=== PATIENT | female | born 1985 | race Caucasian/White ===

== ENCOUNTER 2016-08-12 05:59 | Day surgery (SDC) | payer OTHER ==
[~2016-08-12] VITALS: Ht 170.2 cm; Wt 87.1 kg
[~2016-08-12 05:59] MED LIST: NITR100C62 PO
[2016-08-12] MEDS ORDERED: CEFAZOLIN 1GM IVPB FOR OMNI 50 ML IV PRN (06:00)
[2016-08-12] MEDS ORDERED: NALT1TAB PO (06:38)
[2016-08-12] MEDS ORDERED: OMEP20TA63 PO (06:38)
[2016-08-12] MEDS ORDERED: BUPIVACAINE-EPI 0.25%-1:200000 MPF 30 ML VIAL. ONE (06:40)
[2016-08-12] MEDS ORDERED: SURGICEL HEMOSTAT 4X8 EACH. ONE (06:40)
[2016-08-12 06:48] LABS: NEG OBC UR NEG; POS OBC UR POS
[2016-08-12] MEDS ORDERED: ONDANSETRON PF 4 MG/2 ML VIAL. IV PRN (07:00)
[2016-08-12] MEDS ORDERED: KETOROLAC TROMETHAMINE 30 MG/ML SYRINGE. IV ONE (07:00)
[2016-08-12] MEDS ORDERED: PROCHLORPERAZINE 10 MG/2 ML VIAL. IV PRN (07:00)
[2016-08-12] MEDS ORDERED: IV RINGERS,LACTATED 1000ML 1,000 ML IV SCH (07:00)
[2016-08-12] MEDS ORDERED: MORPHINE SULFATE 2 MG/ML DISP.SYRIN. IV PRN (07:00)
[2016-08-12] MEDS ORDERED: FENTANYL PF 100 MCG/2 ML VIAL. IV PRN ×2 (07:00)
[2016-08-12] MEDS ORDERED: LIDOCAINE 1% 1 ML SYRINGE. ID PRN (07:00)
[2016-08-12] MEDS ORDERED: METHYLENE BLUE 1% 1 ML VIAL. ONE (08:02)
[2016-08-12] MEDS ORDERED: GLYCOPYRROLATE 1 MG/5 ML VIAL. ONE (08:05)
[2016-08-12] MEDS ORDERED: SEVOFLURANE 61 TO 120 MINUTES. IH ONE (08:05)
[2016-08-12] MEDS ORDERED: FENTANYL PF 100 MCG/2 ML VIAL. ONE ×3 (08:05→09:39)
[2016-08-12] MEDS ORDERED: MIDAZOLAM HCL 2 MG/2 ML VIAL. ONE (08:05)
[2016-08-12] MEDS ORDERED: PROPOFOL 20 ML IV ONE (08:06)
[2016-08-12] MEDS ORDERED: DEXAMETHASONE SOD PHOS 20 MG/5 ML VIAL. ONE (08:06)
[2016-08-12] MEDS ORDERED: NEOSTIGMINE METHYLSULFATE 5 MG/5 ML SYRINGE. ONE (08:06)
[2016-08-12] MEDS ORDERED: LIDOCAINE 2% 100 MG/5 ML DISP.SYRIN. ONE (08:06)
[2016-08-12] MEDS ORDERED: ROCURONIUM 50 MG/5 ML VIAL. ONE (08:06)
[2016-08-12] MEDS ORDERED: KETOROLAC 30 MG/ML SYRINGE FOR OR. INJ ONE (08:06)
[2016-08-12] MEDS ORDERED: ONDANSETRON PF 4 MG/2 ML VIAL. ONE (08:06)
[2016-08-12] MEDS ORDERED: PHENYLEPHRINE in 0.9% NACL PF 1 MG/10 ML DISP.SYRIN. IV ONE (08:47)
--- NOTE | 2016-08-12 10:10 | PDOC ---
BRIEF OPERATIVE NOTE Pre-Op Diagnosis AUB Post-Op Diagnosis Same + ROV Cyst and Endometriosis and Endometrial polyps Procedure Performed 1. Operative HSC 2. LPSC ROV Cystectomy 3. Chromotubation Surgeon Dr. Sparks Anesthesia Type: General Blood Loss 10 ml Specimens Obtained ROV cyst wall Findings nml size uterus, endometrial polyps, pelvic sidewall adhesions, non patent fallopian tubes, ROV cysts of 3 cm and 5 cm size, endometriosis on Right fallopian tube Complications none Additional Remarks pt. BALDO Snell Jr, MD Aug 12, 2016 10:10
--- NOTE | 2016-08-12 10:12 | DISCH ---
DISCHARGE INSTRUCTIONS Condition on Discharge Condition on Discharge: Stable Activity After Discharge Activity Instructions for Disc: Resume previous activity Lifting Instructions after Dis: No heavy lifting Driving Instructions after Dis: Do not drive today Diet after Discharge Diet after Discharge: Regular Contacting the DRBill after DC Call your doctor for: Concerns you may have Follow-Up Follow up with: Dr. Sparks in 1 week. BALDO SPARKS Jr, MD Aug 12, 2016 10:12
[2016-08-12] MEDS: HYDROMORPHONE 2 MG/ML VIAL. IV PRN ×2 (10:19→10:31)
[2016-08-12] MEDS ORDERED: ACETAMINOPHEN INTRAVENOUS 100 ML IV ONE ×2 (10:23→10:45)
[2016-08-12] MEDS ORDERED: OXYC-323 PO (10:50)
[2016-08-12] MEDS ORDERED: ONDA4TAB10 PO (10:50)
[2016-08-12 11:10] VITALS: BP 110/66
--- NOTE | 2016-08-12 13:54 | OP ---
DATE OF SURGERY: PREOPERATIVE DIAGNOSIS: Abnormal uterine bleeding. POSTOPERATIVE DIAGNOSES: 1. Abnormal uterine bleeding. 2. Right ovarian cyst. 3. Endometriosis. 4. Endometrial polyps. PROCEDURE: 1. Operative hysteroscopy with polypectomy. 2. Laparoscopic right ovarian cystectomy. 3. Chromotubation. SURGEON: Baldo Sparks MD ANESTHESIA: GETA. ESTIMATED BLOOD LOSS: 10 mL. COMPLICATIONS: None. FINDINGS: Normal size uterus, endometrial polyps throughout the endometrial cavity. Pelvic several adhesions, nonpatent fallopian tubes bilaterally, right ovarian cyst was 3 and 5 cm in size. SUMMARY: A 31-year-old female with history of abnormal uterine bleeding, counseled on risk for operative hysteroscopy, chromotubation, and diagnostic laparoscopy. Risks, benefits and expectations and voiced a clear understanding to proceed. DESCRIPTION OF PROCEDURE: The patient was taken to the surgery suite and placed in dorsal lithotomy position. She was prepped with Betadine solution for vaginal prep and ChloraPrep for abdominal prep. After adequate anesthesia, a weighted speculum was placed vaginally. Anterior lip of the cervix was grasped with a single tooth tenaculum. Cervix was dilated with Gisselle dilators up to size 6. The Truclear hysteroscope was then placed. There were multiple endometrial polyps, which were removed with the Truclear device until the cavity was homogeneous and clear of all debris. The hysteroscope was then removed. The uterine acorn manipulator was then placed along with the methylene blue dye tubing. Attention was placed on the abdomen, in which a small transverse skin incision was made just below the umbilicus with a scalpel. The Veress needle was then placed through the infraumbilical incision site. The abdomen was allowed to insufflate up to 1-1/2 liters of CO2 gas. The Veress needle was then removed. The 5-mm trocar was placed. The scope was positioned. The uterus appeared normal sized. There were few pelvic sidewall adhesions. Two incisions were made in the left lower quadrant with a scalpel, in which 5 mm trocars were placed respectively. The chromotubation was then proceeded with, in which neither fallopian tube had spillage of methylene blue dye. With the aid of graspers and Catrina retractor, the remainder of the abdominal cavity was visualized. There was endometriosis on the right fallopian tube near the isthmus region. There was a right ovarian cyst one of 3 cm size and other 5 cm in size. Each was incised with EndoShears and suction irrigation was utilized to drain the cyst. The cyst cannon were removed using EndoShears. The remaining cyst wall was fulgurated with the EndoShears cautery. The area was hemostatic. Suction irrigation was utilized to verify good hemostasis and cleared rest of the pelvic cul-de-sac. A small amount of normal saline was left in the posterior cul-de-sac. The trocars were then removed under direct visualization. The abdomen was allowed to deflate as much as possible along with mechanical manipulation. Three skin incisions were reapproximated using 4-0 Vicryl suture in subcuticular manner. Marcaine 0.25% with epinephrine was injected at each incision site. The single tooth tenaculum and uterine acorn manipulator were then removed. The patient tolerated the procedure well and was taken to recovery room in stable condition. Sponge and needle counts correct x 3. BALDO SPARKS MD DR: ELIN/acnelmo JOB#: [id number] / [id number]
--- NOTE | 2016-08-13 13:42 | PATHOLOGY ---
PATHOLOGY REPORT * * * * * * * * FINAL DIAGNOSIS: A. Endometrial curettings: - Secretory endometrium. B. Ovarian tissue, right ovarian cyst #1: - Hemorrhagic partially luteinized follicle cyst. C. Ovarian tissue, right ovarian cyst #2: - Hemorrhagic partially luteinized follicle cyst. COMMENT: There is no evidence of malignancy. (JPM:csd; d/t: 08/13/2016) REPORT ELECTRONICALLY SIGNED BY: Ron Andujar M.D. DATE/TIME: 08/13/2016 13:41 * * * * * * * * GROSS PATHOLOGY: A. The specimen is received in formalin, labeled "Partha Mcguirea and endometrial polyp." Received is a 2.3 x 0.7 x 0.2 cm aggregate of pink-diamond, rubbery, and irregular soft tissue fragments. The specimen is entirely submitted in cassette A1. B. The specimen is received in formalin, labeled "Mcguire, Pablo and right ovarian cyst (1st)." Received is a 3.3 x 1.8 x 0.9 cm aggregate of blood tinged, pink-diamond to yellow, irregular, and cystic soft tissue. The specimen is sectioned and entirely submitted in cassettes B1-B2. C. The specimen is received in formalin, labeled "Mcguire, Pablo and right ovarian cyst (2nd)." Received is a 2.3 x 0.9 x 0.5 cm aggregate of blood tinged, pink-diamond to yellow, irregular, and cystic soft tissue. The specimen is sectioned and entirely submitted in cassette C1. (TTL; 08/12/2016) INITIAL CPT CODE(S): A; 80750 B; 13914 C; 83325 Professional services performed by [facility] at [address] [address] Technical services performed by [facility] at [address] [place] [address], [address] [address]. SPECIMEN(S) RECEIVED: A.Endometrial polyp B.Right ovarian cyst #1 C.Right ovarian cyst #2 CLINICAL HISTORY: AUB PATIENT: PABLO MCGUIRE /AGE: 7 1985 (Age: 31) PATIENT #: [id number] ALT CASE #: SPECIMEN COLLECTION DATE: 08/12/2016 SPECIMEN RECEIVED DATE: 08/12/2016 [facility] - [id number] [address] - PHONE: [phone] * * * END OF REPORT * * *
== END 2016-08-12 11:21 | disposition home or self-care (01) ==
LOC: SURG 05:59
PROVIDERS: ATTEND Obstetrics & Gynecology
DX: N84.0 Polyp of corpus uteri (principal); N83.291 Other ovarian cyst, right side; N80.9 Endometriosis, unspecified; N73.6 Female pelvic peritoneal adhesions (postinfective); K21.9 Gastro-esophageal reflux disease without esophagitis; F10.99 Alcohol use, unspecified with unspecified alcohol-induced disorder; F17.200 Nicotine dependence, unspecified, uncomplicated
CPT/HCPCS: 58350; 58558; 58662; 81025; 88304; 88305; A4215; J0131; J0690; J0780; J1100; J1170; J1885; J2250; J2370; J2405; J2704; J2710; J3010; J3490; J7030; J7120; Q9968

== ENCOUNTER → 2016-09-29 | Outpatient (CLI) | payer OTHER ==
[~2016-09-29] MED LIST changes: +NALT1TAB PO; +OMEP20TA63 PO; +ONDA4TAB10 PO; +OXYC-323 PO
== END | disposition home or self-care (01) ==
LOC: LAB 12:03
PROVIDERS: ATTEND Obstetrics & Gynecology
DX: N91.2 Amenorrhea, unspecified (principal)
CPT/HCPCS: 36415; 84702

== ENCOUNTER → 2016-09-29 | Outpatient (CLI) | payer OTHER ==
[~2016-09-29] MED LIST changes: +IOHEXOL 180 MG/ML 10 ML VIAL. INT UTERIN ONE
--- NOTE | 2016-09-29 14:07 | KCIC ---
PROCEDURE Hysterosalpingogram HISTORY Infertility, endometriosis COMPARISON None TECHNIQUE Patient was informed of the risks to include pain, infection, bleeding, allergic reaction. All questions were answered. Patient signed a written consent form for a hysterosalpingogram. Patient was placed in a supine position on the fluoroscopy table. External skin site was cleansed with Betadine solution. Speculum was inserted. Cervix was cleansed with Betadine solution. Six Czech HSG catheter was inserted and secured with balloon inflation. Fluoroscopic imaging was performed of the uterus during injection of contrast. Approximately 20 cc of Omnipaque 180 were injected. Balloon was deflated and catheter removed. Speculum was removed. There were no immediate complications. FINDINGS Uterus is considered within normal limits. Initially there was no significant contrast opacification of the fallopian tubes. However upon further injection of contrast, there was contrast opacification of the right fallopian tube with some free spill of contrast. There is some undulating irregularity of the cannon of the right fallopian tube. Left fallopian tube never opacified with contrast. Fluoroscopy time 1 minutes 7 seconds, 15 images IMPRESSION 1. Left fallopian tube is occluded. Right fallopian tube is patent, somewhat delayed opacification with contrast and some undulating irregularity of the cannon. Electronically signed by: Ok Lopez MD (Sep 29, 2016 14:05:10)
== END | disposition home or self-care (01) ==
LOC: KCIC 12:43
PROVIDERS: ATTEND Obstetrics & Gynecology
DX: N80.9 Endometriosis, unspecified (principal)
CPT/HCPCS: 74400

== ENCOUNTER → 2016-12-15 | Outpatient (CLI) | payer OTHER ==
[~2016-12-15] MED LIST changes: -IOHEXOL 180 MG/ML 10 ML VIAL. INT UTERIN ONE
--- NOTE | 2016-12-15 12:23 | RAD ---
PROCEDURE MRI of the lumbar spine without contrast 12/15/2016 HISTORY Low back pain which radiates down the right leg. TECHNIQUE Unenhanced T1 weighted, T2 weighted and inversion recovery sagittal and T1 weighted and T2 weighted axial images of the lumbar spine were obtained. FINDINGS Minimal S-shaped curvature of the thoracolumbar spine is seen. Degenerative signal changes are seen involving the L4-5 and L5-S1 discs. Loss of height of the L5-S1 disc is noted. Degenerative signal changes within the marrow surrounding these discs. The conus medullaris is normal in morphology, position, and signal characteristics. The L1-2, L2-3 and L3-4 disc spaces are within normal limits. At tge L4-5 disc space there is a mild generalized disc bulge. Superimposed on this disc bulge is a focal central disc protrusion. This measures 2 millimeters in AP diameter. Degenerative changes are seen involving the facet joints bilaterally. There is mild ligamentum flavum hypertrophy bilaterally. These findings when combined do not result in significant central spinal canal or neural foraminal stenosis. At the L5-S1 disc space there is a mild generalized disc bulge. Superimposed on this disc bulge is a central/left paracentral focal disc protrusion. This measures 3 millimeters in AP diameter. Degenerative changes are seen involving the facet joints bilaterally. These findings when combined do not result in significant central spinal canal or neural foraminal stenosis. IMPRESSION The changes of degenerative disc disease are seen involving the lower lumbar spine. These findings do not result in significant central spinal canal or neural foraminal stenosis at any level. Electronically signed by: Nathan Craig MD (December 15, 2016 12:22:19)
== END | disposition home or self-care (01) ==
LOC: MRI 08:55
PROVIDERS: ATTEND Family Medicine
DX: S39.012D Strain of muscle, fascia and tendon of lower back, subsequent encounter (principal); S30.0XXD Contusion of lower back and pelvis, subsequent encounter; X58.XXXD Exposure to other specified factors, subsequent encounter; M51.36 Other intervertebral disc degeneration, lumbar region
CPT/HCPCS: 72148

== ENCOUNTER 2017-06-16 10:45 | Emergency (ER) | payer OTHER ==
[~2017-06-16] VITALS: Ht 170.2 cm; Wt 95.3 kg
[~2017-06-16 10:45] MED LIST changes: +DULO30CA2 PO; +MEDR150D3 IM; +NAPR500T4 PO; +NORE5TAB3 PO; +OXYC-328 PO; +PANT40TA5 PO; +TIZA4TAB PO
--- NOTE | 2017-06-16 11:39 | PHYS DOC ---
Past Medical History Past Medical History: Endometriosis, Other Additional Past Medical Histor: ACID REFLUX,Ruptured ovarian cyst, BULGING DISCS, MISCARRIAGE X2 Past Surgical History: Other Additional Past Surgical Histo: Dental surgery, HISTOSCOPY Smoking: Cigarettes, Less than 1pk/day Alcohol Use: Occasionally Drug Use: None Adult General Chief Complaint Chief Complaint: LOWER EXT PAIN [facility] HPI Patient is a pleasant 32-year-old female with a history of back injury she sustained while at work. There is a fall from standing where she sustained injury to her lumbar spine and has L4 L5 S1 bulging disc. She developed increasing pain with tingling down her legs bilaterally for about 6 months. She is seen by Dr. Maddie Perkins pain management physician who completed an MRI 6 months ago which showed these bulging disc. They're not amenable to surgery according to the patient. They attempted an epidural 6 days ago. Patient has had increasing pain and weakness in her legs bilaterally since. She's had difficulty initiating urination she denies bowel or bladder incontinence denies any lower extremity edema or numbness. She says that she can hardly walk secondary to the pain and the weakness has progressed in her lower legs. She was told by her physician to come in for evaluation for possible epidural hematoma or competition of the epidural injection. Patient at this time and denies UTI symptoms, denies being , denies fever, chills, night sweats or weight loss. She denies specific trauma. Patient's pain is a significant 8 of 10 worse with range of motion and walking. Review of Systems Review of Systems Constitutional: Denies fever or chills [] Eyes: Denies change in visual acuity, redness, or eye pain [] HENT: Denies nasal congestion or sore throat [] Respiratory: Denies cough or shortness of breath [] Cardiovascular: No additional information not addressed in HPI [] GI: Denies abdominal pain, nausea, vomiting, bloody stools or diarrhea [] : Denies dysuria or hematuria [] Musculoskeletal: Complains of significant back pain that is progressively worse. With increasing weakness of the lower legs. Integument: Denies rash or skin lesions [] Neurologic: Denies headache, she describes weakness in the lower legs bilaterally at the knees and ankles with walking.] Endocrine: Denies polyuria or polydipsia [] All other systems were reviewed and found to be within normal limits, except as documented in this note. Current Medications Current Medications Current Medications Medications (Trade) Dose Ordered Sig/Sugey Start Time Stop Time Status Last Admin Dose Admin Gadobutrol (Gadavist) 10 mmol 1X ONCE 06/16/17 13:00 06/16/17 13:01 DC 06/16/17 13:24 10 MMOL Hydromorphone HCl (Dilaudid) 1 mg 1X ONCE 06/16/17 14:15 06/16/17 14:16 DC 06/16/17 14:22 1 MG Ketorolac Tromethamine (Toradol) 30 mg 1X ONCE 06/16/17 11:45 06/16/17 11:46 DC 06/16/17 11:52 30 MG Ondansetron HCl (Zofran) 4 mg 1X ONCE 06/16/17 11:45 06/16/17 11:46 DC 06/16/17 11:51 4 MG Allergies Allergies Allergies Coded Allergies Type Severity Reaction Last Updated Verified No Known Drug Allergies 08/12/16 No Physical Exam Physical Exam Patient's vital signs noted to be tachycardic and hypertensive which may be a associated with pain levels as well as possible necrotic withdrawal. Constitutional: Well developed, well nourished, patient is sitting comfortable in no acute distress nontoxic appearance HENT: Normocephalic, atraumatic, bilateral external ears normal, oropharynx moist, no oral exudates, nose normal. [] Eyes: PERRLA, EOMI, conjunctiva normal, no discharge. [] Neck: Normal range of motion, no tenderness, supple, no stridor. [] Cardiovascular:Heart rate regular rhythm, no murmur [] Lungs & Thorax: Bilateral breath sounds clear to auscultation [] Abdomen: Bowel sounds normal, soft, no tenderness, no masses, no pulsatile masses. [] Skin: Warm, dry, no erythema, no rash. [] Back: Patient does demonstrate tenderness to palpation over the epidural site over L4-L5 with no evidence of erythema soft tissue swelling or warmth to touch. Extremities: No tenderness, no cyanosis, no clubbing, ROM intact, no edema. [] Neurologic: Alert and oriented X 3, he has weakness to extension at the knee has brisk + DTRs at the knee and ankle bilaterally with normal sensation to light touch and proprioception. Patient has normal strength to patient is able to extend at the hip although there is some slight weakness noted. Psychologic: Affect normal, judgement normal, mood normal. [] Current Patient Data Vital Signs Vital Signs Date Time Temp Pulse Resp B/P (MAP) Pulse Ox O2 Delivery O2 Flow Rate FiO2 06/16/17 14:22 18 99 Room Air 06/16/17 13:52 91 118/79 (92) 06/16/17 11:05 97.8 97.8 Lab Values Laboratory Tests Test 06/16/17 11:45 06/16/17 12:08 06/16/17 12:19 White Blood Count 10.6 x10^3/uL (4.0-11.0) Red Blood Count 4.54 x10^6/uL (3.50-5.40) Hemoglobin 14.9 g/dL (12.0-15.5) Hematocrit 44.0 % (36.0-47.0) Mean Corpuscular Volume 97 fL (79-100) Mean Corpuscular Hemoglobin 33 pg (25-35) Mean Corpuscular Hemoglobin Concent 34 g/dL (31-37) Red Cell Distribution Width 13.6 % (11.5-14.5) Platelet Count 345 x10^3/uL (140-400) Neutrophils (%) (Auto) 58 % (31-73) Lymphocytes (%) (Auto) 32 % (24-48) Monocytes (%) (Auto) 8 % (0-9) Eosinophils (%) (Auto) 2 % (0-3) Basophils (%) (Auto) 1 % (0-3) Neutrophils # (Auto) 6.1 x10^3uL (1.8-7.7) Lymphocytes # (Auto) 3.3 x10^3/uL (1.0-4.8) Monocytes # (Auto) 0.8 x10^3/uL (0.0-1.1) Eosinophils # (Auto) 0.2 x10^3/uL (0.0-0.7) Basophils # (Auto) 0.1 x10^3/uL (0.0-0.2) Sodium Level 138 mmol/L (136-145) Potassium Level 3.9 mmol/L (3.5-5.1) Chloride Level 102 mmol/L (98-107) Carbon Dioxide Level 24 mmol/L (21-32) Anion Gap 12 (6-14) Blood Urea Nitrogen 14 mg/dL (7-20) Creatinine 0.7 mg/dL (0.6-1.0) Estimated GFR (Cockcroft-Gault) 97.0 BUN/Creatinine Ratio 20 (6-20) Glucose Level 101 mg/dL (70-99) H Calcium Level 9.4 mg/dL (8.5-10.1) Total Bilirubin 0.2 mg/dL (0.2-1.0) Aspartate Amino Transferase (AST) 14 U/L (15-37) L Alanine Aminotransferase (ALT) 22 U/L (14-59) Alkaline Phosphatase 86 U/L (46-116) Total Protein 7.5 g/dL (6.4-8.2) Albumin 3.5 g/dL (3.4-5.0) Albumin/Globulin Ratio 0.9 (1.0-1.7) L Urine Collection Type Unknown Urine Color Yellow Urine Clarity Clear Urine pH 6.5 Urine Specific [place] 1.020 Urine Protein Negative mg/dL (NEG-TRACE) Urine Glucose (UA) Negative mg/dL (NEG) Urine Ketones (Stick) Negative mg/dL (NEG) Urine Blood Negative (NEG) Urine Nitrite Negative (NEG) Urine Bilirubin Negative (NEG) Urine Urobilinogen Dipstick 0.2 mg/dL (0.2 mg/dL) Urine Leukocyte Esterase Negative (NEG) Urine RBC 1-2 /HPF (0-2) Urine WBC 1-4 /HPF (0-4) Urine Squamous Epithelial Cells Few /LPF Urine Bacteria 0 /HPF (0-FEW) Urine Mucus Marked /LPF POC Urine HCG, Qualitative Hcg negative (Negative) Laboratory Tests 06/16/17 11:45 Laboratory Tests 06/16/17 11:45 EKG EKG [] Radiology/Procedures Radiology/Procedures [] [facility] [address] [place], [place] [id number] IMAGING REPORT Signed PATIENT: PABLO MCGUIRE ACCOUNT: [id number] : 1985 LOCATION: ER AGE: 32 SEX: F EXAM STATUS: REG ER ORD. PHYSICIAN: DONG HOFF MD REASON: recent epidural increasing weakness PROCEDURE: LUMBAR SPINE WO/W CONTRAST MRI Lumbar Spine without and with contrast History: Bilateral leg weakness, recent epidural Technique: Multiplanar, multi sequential pre and postcontrast MR imaging was performed of the lumbar spine. Contrast: 10 cc Gadavist Comparison: December 15, 2016 Findings: Lumbar vertebral body stature and AP alignment are maintained. There is again mild to moderate degenerative disc disease L5-S1 and minimally at L4-5. There are again posterior annular tears L4-5 and L5-S1. There is no significant marrow edema. Conus terminates at L1. There is no nodular enhancement of the conus or cauda equina, no enhancement in the intervertebral disc spaces. There is no significant marrow edema. L1-L2: Spinal canal and neural foramina are adequate. L2-L3: Neural foramina and spinal canal are adequate. L3-L4: Neural foramina and spinal canal are adequate. There is mild facet hypertrophic change. There is prominence of posterior epidural fat. L4-L5: There is again negligible disc osteophyte complex and bulge. There is mild facet degenerative change. Spinal canal and neural foramina are adequate. There is mild prominence of posterior epidural fat. L5-S1: There is again very shallow posterior disc osteophyte complex and bulge. Spinal canal is adequate. Neural foramina are adequate. There is mild facet degenerative change. Impression: 1. Findings are similar compared with the December 15, 2016 exam, no new significant lumbar spinal stenosis or neural foramina compromise. There is again mild to moderate degenerative disc disease at L5-S1 and minimally at L4-5. There is mild spondylosis at these levels. Electronically signed by: Maddie Salas MD (06/16/2017 1:43 PM) [facility] DICTATED and SIGNED BY: MADDIE SALAS MD DATE: 06/16/17 [id number] CC: DONG HOFF MD; AXEL CHEN MD ~ Course & Med Decision Making Course & Med Decision Making Pertinent Labs and Imaging studies reviewed. (See chart for details) []CRAFTI Cauda Equina Renal Stone AAA ruptured Fracture Tumor (TB, metastatic disease) Infection UTI, pyelonephritis, epidural abscess. I'm is concerned with prior epidural placement is initially epidural hematoma or epidural abscess, again the situation. Patient has some symptoms of cauda equina with progressive weakness but no evidence of saddle anesthesia MRI of the lumbar spine with a noncontrast be initiated for the emergency department Patient's lumbar MRI with and without contrast demonstrated no significant epidural hematoma or abscess. There is very minimal change from the prior MRI done several months earlier. Dragon Disclaimer Dragon Disclaimer This electronic medical record was generated, in whole or in part, using a voice recognition dictation system. Departure Departure Impression: Primary Impression: Chronic lower back pain Disposition: HOME, SELF-CARE Condition: IMPROVED Referrals: AXEL CHEN MD (PCP) Patient Instructions: Back Pain, Adult, Chronic Back Pain, Chronic Pain Management Additional Instructions: discharge: I've spoken with the patient and/or caregivers. I've explained the patient's condition, diagnosis and treatment plan based on information available to me at this time. I've answered the patient's and/or caregivers questions and addressed any concerns. The patient and/or caregivers have a good understanding the patient's diagnosis, condition and treatment plan as can be expected at this point. Vital signs have been stabilized. The patient's condition is stable for discharge from the emergency department. The patient will pursue further outpatient evaluation with her primary care provider or other designated consulting physician as outlined in the discharge instructions. Patient and/or caregivers are agreeable to this plan of care and follow-up instructions have been explained in detail. The patient and/or caregivers have received these instructions in written format and expressed understanding of these discharge instructions. The patient and her caregivers are aware that if any significant change in condition or worsening of symptoms should prompt him to immediately return to this of the closest emergency department. If an emergent department is not readily available I would encourage him to call 911. Scripts Diazepam (VALIUM) 5 Mg Tablet 5 MG PO TID for MUSCLE SPASMS for 5 Days, #15 TAB Prov: DONG HOFF MD 06/16/17 DONG HOFF MD Jun 16, 2017 11:39
[2017-06-16] MEDS ORDERED: ONDANSETRON PF 4 MG/2 ML VIAL. IV ONE (11:45)
[2017-06-16] MEDS ORDERED: KETOROLAC 30 MG/ML INJ. IV ONE (11:45)
[2017-06-16] MEDS: HYDROmorphone 2 MG/ML VIAL IV ONE (11:51)
[2017-06-16 12:03] LABS: BASO # 0.1 x10^3/uL (0.0-0.2); BASO % 1 % (0-3); EOS % 2 % (0-3); HEMOGLOBIN 14.9 g/dL (12.0-15.5); LYMPH # 3.3 x10^3/uL (1.0-4.8); LYMPH % 32 % (24-48); MEAN CORPUSCULAR HEMOGLOBIN 33 pg (25-35); MEAN CORPUSCULAR HGB CONC 34 g/dL (31-37); MEAN CORPUSCULAR VOLUME 97 fL (79-100); MONO % 8 % (0-9); NEUT % 58 % (31-73); PLATELET COUNT 345 x10^3/uL (140-400); RED BLOOD COUNT 4.54 x10^6/uL (3.50-5.40); RED CELL DISTRIBUTION WIDTH 13.6 % (11.5-14.5); WHITE BLOOD COUNT 10.6 x10^3/uL (4.0-11.0)
[2017-06-16 12:12] LABS: CALCIUM 9.4 mg/dL (8.5-10.1); CREATININE 0.7 mg/dL (0.6-1.0); POTASSIUM 3.9 mmol/L (3.5-5.1)
[2017-06-16 12:18] LABS: ALBUMIN 3.5 g/dL (3.4-5.0); ALBUMIN/GLOBULIN RATIO 0.9 (1.0-1.7); TOTAL BILIRUBIN 0.2 mg/dL (0.2-1.0); TOTAL PROTEIN 7.5 g/dL (6.4-8.2)
[2017-06-16 12:25] LABS: BILIRUBIN,URINE NEGATIVE (NEG); GLUCOSE,URINE NEGATIVE (NEG); NITRITE,URINE NEGATIVE (NEG); PH,URINE 6.5; PROTEIN,URINE NEGATIVE (NEG-TRACE); UROBILINOGEN,URINE 0.2 mg/dL (0.2 mg/dL)
[2017-06-16 12:39] LABS: BACTERIA,URINE 0 /HPF (0-FEW); SQUAMOUS EPITHELIAL CELL,UR FEW /LPF
[2017-06-16] MEDS ORDERED: GADOBUTROL 10 MMOL/10 ML VIAL IV ONE (13:00)
--- NOTE | 2017-06-16 13:47 | RAD ---
MRI Lumbar Spine without and with contrast History: Bilateral leg weakness, recent epidural Technique: Multiplanar, multi sequential pre and postcontrast MR imaging was performed of the lumbar spine. Contrast: 10 cc Gadavist Comparison: December 15, 2016 Findings: Lumbar vertebral body stature and AP alignment are maintained. There is again mild to moderate degenerative disc disease L5-S1 and minimally at L4-5. There are again posterior annular tears L4-5 and L5-S1. There is no significant marrow edema. Conus terminates at L1. There is no nodular enhancement of the conus or cauda equina, no enhancement in the intervertebral disc spaces. There is no significant marrow edema. L1-L2: Spinal canal and neural foramina are adequate. L2-L3: Neural foramina and spinal canal are adequate. L3-L4: Neural foramina and spinal canal are adequate. There is mild facet hypertrophic change. There is prominence of posterior epidural fat. L4-L5: There is again negligible disc osteophyte complex and bulge. There is mild facet degenerative change. Spinal canal and neural foramina are adequate. There is mild prominence of posterior epidural fat. L5-S1: There is again very shallow posterior disc osteophyte complex and bulge. Spinal canal is adequate. Neural foramina are adequate. There is mild facet degenerative change. Impression: 1. Findings are similar compared with the December 15, 2016 exam, no new significant lumbar spinal stenosis or neural foramina compromise. There is again mild to moderate degenerative disc disease at L5-S1 and minimally at L4-5. There is mild spondylosis at these levels. Electronically signed by: Pineda Lopez MD (06/16/2017 1:43 PM) [id number]
[2017-06-16 13:52] VITALS: BP 118/79
[2017-06-16] MEDS ORDERED: HYDROmorphone 2 MG/ML VIAL IV ONE (14:15)
[2017-06-16] MEDS ORDERED: DIAZ5TAB PO (14:34)
== END 2017-06-16 14:41 | disposition home or self-care (01) ==
LOC: ER 10:45
DX: G89.29 Other chronic pain (principal); M54.5 Low back pain; R39.198 Other difficulties with micturition; F17.210 Nicotine dependence, cigarettes, uncomplicated; K21.9 Gastro-esophageal reflux disease without esophagitis
CPT/HCPCS: 36415; 72158; 80053; 81001; 81025; 85025; 96374; 96375; 96376; 99285; A9585; J1170; J1885; J2405

== ENCOUNTER → 2017-06-27 | Outpatient (CLI) | payer OTHER ==
[2017-06-16 13:52] VITALS: BP 118/79
[~2017-06-27] MED LIST changes: +DIAZ5TAB PO; +IOHEXOL 180 MG/ML 10 ML VIAL. ONE; +methylPREDNISolone ACETATE 40 MG/ML VIAL. ONE; +methylPREDNISolone ACETATE 80 MG/ML VIAL. ONE
--- NOTE | 2017-06-27 18:48 | PAIN ---
DATE OF SERVICE: 06/27/2017 DIAGNOSES: Lumbar radiculopathy with lumbar degenerative disk disease. HISTORY OF PRESENT ILLNESS: The patient is a 32-year-old female who returns for followup status post lumbar epidural steroid injection x 1. The patient reports initially about 50% improvement and pain began to come back. About a week ago, pain returned. The patient had actually called the office with complaints that she was unable to move her right leg. We had her go to the Emergency Department. She was evaluated and sent home after MRI scan showing no significant or acute findings similar compared with 11/2016 exam with no new significant lumbar spinal stenosis or neural foraminal compromise. Also again showed mild to moderate degenerative disk disease, L5-S1 minimally at L4-L5 with a shallow posterior disk osteophyte complex at L5-S1 and L4-L5. The patient reports after that, her legs felt better. She had been able to move them more. She is still having some pain in the low back, mostly in the right side, but also in the left as well, worse with walking, standing, changing positions, better with sitting or lying down, is awakening her from sleep occasionally though over the past few days, but not every night, she needs to be repositioned or take pain medicine or get out of bed and stand and then get back to sleep after that. The patient reports pain is a 9 on a scale of 10 at its worst, 7 on average and a 5 at its least and is a 7 today. The patient reports it is stabbing, aching, shooting, constant severe in the low back, radiating to the right lower extremity posteriorly in the gluteus as well as the lateral anterior thigh. The patient reports no new motor or sensory deficits, no new bowel or bladder incontinence or other complaints. PHYSICAL EXAMINATION: VITAL SIGNS: Today, the patient's blood pressure is 147/98, pulse 90, respirations 18, temperature 97.4 degrees Fahrenheit. Height is 5 feet 7 inches, weight is 214 pounds. GENERAL: The patient is awake, alert, oriented, appropriate, very pleasant demeanor. HEENT: Head shows normocephalic, atraumatic. Extraocular movements are intact, symmetrical. Oral cavity: Mucous membranes are moist and pink. Dentition is intact. NECK: Shows anterior throat supple without palpable lymphadenopathy noted. Swallow reflex is symmetrical. Neck shows full rotational motion of the cervical spine without difficulty. CHEST: Shows normal on inspection. Breath sounds clear to auscultation bilaterally. HEART: Shows S1, S2 clear. No murmurs auscultated. ABDOMEN: Soft, nontender, nondistended, obese. No palpable organomegaly. No rebound or guarding demonstrated. BACK: Shows spine grossly in midline. Normal appearing thoracic kyphosis and lumbar lordotic curvature. Lumbar paraspinous muscle shows symmetrical on inspection with normal lordotic curvature. Lumbar paraspinous muscles show diffuse tenderness throughout the middle and lower distribution bilaterally, slightly more on the right than the left, but present bilaterally without evidence of atrophy, hypertrophy without radiation or trigger points identified. No tenderness over the sacrum or sacroiliac regions. EXTREMITIES: Lower extremities show deep tendon reflexes at 2+ in the patellar, 1+ tendo calcaneus tendons. Motor exam is approximately 4 on a scale 5 with right dorsiflexion, extension, 5/5 on the left. Peripheral pulses are 1+. No peripheral edema is noted. Options were discussed with the patient. The patient's old chart was reviewed as her current medication regimen and updated. Current review of systems is updated today as well. We will proceed with a second in the series of lumbar epidural steroid injection with fluoroscopic guidance. Risks were again discussed including, but not limited to bleeding, infection, possibility of epidural hematoma, subsequent neurologic compromise, dural puncture headache, spinal cord and/or nerve damage, side effects of steroid medication and poor results regarding pain control. The patient understands and wished to proceed. The patient will return to clinic in approximately 2 weeks for followup, was counseled on return appointment, activity level and side effects to be aware of. RIVAS DAWN MD DR: JOSE CRUZ/ancelmo JOB#: [id number] / [id number]
== END | disposition home or self-care (01) ==
LOC: PNCL 10:47
PROVIDERS: ATTEND Anesthesiology
DX: M51.16 Intervertebral disc disorders with radiculopathy, lumbar region (principal); F17.200 Nicotine dependence, unspecified, uncomplicated; K21.9 Gastro-esophageal reflux disease without esophagitis; Z87.39 Personal history of other diseases of the musculoskeletal system and connective tissue; Z72.89 Other problems related to lifestyle
CPT/HCPCS: 62323; J1030; J1040

== ENCOUNTER → 2017-07-11 | Outpatient (CLI) | payer OTHER ==
[2017-06-16 13:52] VITALS: BP 118/79
--- NOTE | 2017-07-11 13:14 | PAIN ---
DATE OF SERVICE: 07/11/2017 DIAGNOSES: Lumbar radiculopathy with lumbar degenerative disk disease. HISTORY OF PRESENT ILLNESS: The patient is a 32-year-old female who returns for followup status post lumbar epidural steroid injections x 2. The patient reports very good improvement for about 3-4 days, about 75% or so after the injection, the pain returning fairly quickly over the next 1-2 days in the low back as it has been slightly worse on the right side than the left at this time. The patient reports no new motor or sensory deficits, still significant pain, even just standing and walking, getting out of bed, getting out of a chair, very exacerbated in the low back itself with radiation to the lower extremities, into the posterior gluteus, posterolateral thigh, lateral anterior thigh, more on the right than the left. The patient reports a stabbing, shooting, aching and becoming more constant with time. The patient reports a 9 on a scale of 10 at its worst, 8 on average and a 5 at its least and is a 5 today. The patient reports no new motor or sensory deficits, no new bowel or bladder incontinence or other complaints, but still significant pain as noted. The patient reports it wakes her from sleep occasionally, not every night, because if it does, she can change positions, take her pain medication or apply heat to the back. Heat seemed to help more than any other modalities. PHYSICAL EXAMINATION: VITAL SIGNS: Today, blood pressure 142/88, pulse 93, respirations 16, temperature 98.0 degrees Fahrenheit, weight is 217 pounds. GENERAL: The patient is awake, alert, oriented, appropriate, very pleasant demeanor. HEENT: Head shows normocephalic, atraumatic. Extraocular movements are intact, symmetrical. Oral cavity: Mucous membranes moist and pink. Dentition is intact. NECK: Shows anterior throat supple without palpable lymphadenopathy noted. Swallow reflex symmetrical. CHEST: Normal with inspection. Breath sounds clear to auscultation bilaterally. HEART: Shows S1, S2 clear. No murmurs auscultated. ABDOMEN: Soft, nontender, nondistended. No palpable organomegaly. No rebound or guarding demonstrated. BACK: Shows spine grossly in the midline. Lumbar paraspinous muscle shows symmetrical on inspection, with palpation shows some moderate tenderness with palpation bilaterally, but only diffusely without radiation, without trigger points, no tenderness over the sacrum or sacroiliac regions. EXTREMITIES: Lower extremities show deep tendon reflexes 2+ in the patellar, 1+ tendo calcaneus tendons. Motor exam is approximately 4/5 on the right and 5/5 on the left with dorsiflexion, extension, but intact. Peripheral pulses are 1+ posterior tibial. No peripheral edema is noted. Options discussed with the patient. The patient's old chart was reviewed as her current medication regimen updated. Current review of systems updated today as well. We will proceed with a third in the series of lumbar epidural steroid injection today with fluoroscopic guidance. Risks were again discussed including, but not limited to bleeding, infection, possibility of epidural hematoma, subsequent neurologic compromise, dural puncture, headaches, spinal cord and/or nerve damage, side effects of steroid medication and poor results regarding pain control. The patient understands and wished to proceed. The patient will return to clinic in approximately 2 weeks for followup. She was counseled on return appointment, activity level and side effects to be aware of. DIAGNOSES: Lumbar radiculopathy with lumbar degenerative disk disease. PROCEDURE: Lumbar epidural steroid injection, translaminar approach at the L4-L5 level using C-arm fluoroscopic guidance under sterile prep and drape using local anesthetic. MEDICATION INJECTED: A total of 120 mg Depo-Medrol, plus 10 mL of preservative-free normal saline and 2 mL Isovue for contrast. CONDITION AT DISCHARGE: Stable. The patient tolerated procedure well, had no complications. RIVAS DAWN MD DR: JOSE CRUZ/ancelmo JOB#: [id number] / [id number]
== END | disposition home or self-care (01) ==
LOC: PNCL 10:48
PROVIDERS: ATTEND Anesthesiology
DX: M51.16 Intervertebral disc disorders with radiculopathy, lumbar region (principal); K21.9 Gastro-esophageal reflux disease without esophagitis; Z72.9 Problem related to lifestyle, unspecified; Z87.39 Personal history of other diseases of the musculoskeletal system and connective tissue; I10 Essential (primary) hypertension; M19.90 Unspecified osteoarthritis, unspecified site; Z98.890 Other specified postprocedural states
CPT/HCPCS: 62323; J1030; J1040

== ENCOUNTER → 2017-07-13 | Outpatient (CLI) | payer OTHER ==
[2017-06-16 13:52] VITALS: BP 118/79
[~2017-07-13] MED LIST changes: -IOHEXOL 180 MG/ML 10 ML VIAL. ONE; -methylPREDNISolone ACETATE 40 MG/ML VIAL. ONE; -methylPREDNISolone ACETATE 80 MG/ML VIAL. ONE
== END | disposition home or self-care (01) ==
LOC: LAB 11:48
PROVIDERS: ATTEND Obstetrics & Gynecology
DX: N93.8 Other specified abnormal uterine and vaginal bleeding (principal)
CPT/HCPCS: 36415; 84702

== ENCOUNTER → 2017-07-14 | Outpatient (CLI) | payer OTHER ==
[2017-06-16 13:52] VITALS: BP 118/79
[~2017-07-14] MED LIST changes: +IOHEXOL 180 MG/ML 10 ML VIAL. INT UTERIN ONE
--- NOTE | 2017-07-14 13:08 | KCIC ---
Hysterosalpingogram HISTORY: Infertility, endometriosis COMPARISON: September 29, 2016 TECHNIQUE: Patient was informed of the risks to include pain, infection, bleeding, allergic reaction. All questions were answered. Patient signed a written consent form for hysterosalpingogram. Patient was placed in a supine position on the fluoroscopy table. External skin surface was cleansed with Betadine solution. Speculum was inserted. Cervix was cleansed with Betadine solution. HSG catheter was inserted and secured with balloon inflation. Contrast was injected during fluoroscopic visualization, 18 cc of Omnipaque 180. The balloon was deflated and catheter removed. Speculum was removed. There were no immediate complications. FINDINGS: No focal filling defect is identified of the uterus. There is again minimal filling of the right fallopian tube, again very small in caliber with undulating irregularity. There was some minimal free spill of contrast via the right fallopian tube. Left fallopian tube again was never seen. Fluoroscopy time: 73 seconds, 7 images. IMPRESSION: 1. As seen previously, left fallopian tube is occluded. There is visualization of small right fallopian tube with wall irregularity, minimal free spill of contrast. Electronically signed by: Pineda Lopez MD (07/14/2017 1:05 PM) [id number]
== END | disposition home or self-care (01) ==
LOC: KCIC 12:22
PROVIDERS: ATTEND Obstetrics & Gynecology
DX: N93.8 Other specified abnormal uterine and vaginal bleeding (principal); N97.1 Female infertility of tubal origin
CPT/HCPCS: 74400

== ENCOUNTER 2017-08-11 07:51 | Day surgery (SDC) | payer OTHER ==
[~2017-08-11 07:51] MED LIST changes: -DIAZ5TAB PO; -DULO30CA2 PO; +HYDROmorphone 2 MG/ML VIAL IV; -IOHEXOL 180 MG/ML 10 ML VIAL. INT UTERIN ONE; +LIDOCAINE 1% PF 2 ML VIAL. ID; -MEDR150D3 IM; -NALT1TAB PO; -NAPR500T4 PO; -NITR100C62 PO; -NORE5TAB3 PO; -OMEP20TA63 PO; -ONDA4TAB10 PO; +ONDANSETRON PF 4 MG/2 ML VIAL. IV; -OXYC-323 PO; -OXYC-328 PO; -PANT40TA5 PO; -TIZA4TAB PO; +fentaNYL PF VIAL 100 MCG/2 ML VIAL IV
[2017-08-11 08:20] LABS: NEG OBC UR NEG; POS OBC UR POS
[2017-08-11 08:21] LABS: U PREG PATIENT NEGATIVE (NEG)
[2017-08-11] MEDS: IV RINGERS,LACTATED 1000ML 1,000 ML IV (09:00)
[2017-08-11] MEDS: SCOPOLAMINE 1.5MG PATCH. TD (09:01)
[2017-08-11] MEDS ORDERED: fentaNYL PF VIAL 100 MCG/2 ML VIAL ×2 (09:08→10:18)
[2017-08-11] MEDS ORDERED: ONDANSETRON PF 4 MG/2 ML VIAL. (09:08)
[2017-08-11] MEDS ORDERED: MIDAZOLAM HCL/PF 2 MG/2 ML VIAL. (09:08)
[2017-08-11] MEDS ORDERED: LIDOCAINE 2% PF Vial for OR 5 ML VIAL. (09:08)
[2017-08-11] MEDS ORDERED: ROCURONIUM 50 MG/5 ML VIAL. (09:08)
[2017-08-11] MEDS ORDERED: DEXAMETHASONE SOD PHOS 20 MG/5 ML VIAL. (09:08)
[2017-08-11] MEDS ORDERED: PROPOFOL 20 ML IV (09:08)
[2017-08-11] MEDS ORDERED: SURGICEL HEMOSTAT 4X8 EACH. (09:28)
[2017-08-11] MEDS ORDERED: BUPIVACAINE MPF 0.5% 30 ML VIAL. (09:28)
[2017-08-11] MEDS ORDERED: KETOROLAC 30 MG/ML INJ FOR OR. INJ (10:19)
[2017-08-11] MEDS ORDERED: SEVOFLURANE 61 TO 120 MINUTES. IH (10:19)
[2017-08-11] MEDS ORDERED: SEVOFLURANE 31 TO 60 MINUTES. IH (10:19)
[2017-08-11] MEDS ORDERED: ESMOLOL 100 MG/10 ML VIAL. IV (10:19)
[2017-08-11] MEDS ORDERED: GLYCOPYRROLATE 1 MG/5 ML VIAL. (10:38)
[2017-08-11] MEDS ORDERED: NEOSTIGMINE METHYLSULFATE 5 MG/5 ML SYRINGE. (10:38)
[2017-08-11] MEDS: PROCHLORPERAZINE 10 MG/2 ML VIAL. IV ×2 (11:03→11:28)
[2017-08-11] MEDS: MORPHINE SULFATE 2 MG/ML DISP.SYRIN. IV ×2 (11:27→11:38)
[2017-08-11] MEDS: fentaNYL PF VIAL 100 MCG/2 ML VIAL IV (11:28)
[2017-08-11] MEDS: oxyCODONE/APAP 5/325 1 TAB TABLET PO (11:41)
[2017-08-11] MEDS: BUPIVACAINE MPF 0.25% 30 ML VIAL. (14:31)
[2017-08-11] MEDS: METHYLENE BLUE 1% 10 ML VIAL. (14:40)
== END 2017-08-11 12:42 | disposition home or self-care (01) ==
LOC: SURG 07:51
DX: N80.9 Endometriosis, unspecified (principal); N97.1 Female infertility of tubal origin; K21.9 Gastro-esophageal reflux disease without esophagitis; F17.200 Nicotine dependence, unspecified, uncomplicated; Z87.39 Personal history of other diseases of the musculoskeletal system and connective tissue; Z72.89 Other problems related to lifestyle
CPT/HCPCS: 49320; 81025; A4215; J0690; J0780; J1100; J1885; J2250; J2270; J2405; J2704; J2710; J3010; J3490; J7030; J7120; Q9968

== ENCOUNTER → 2017-11-24 | Outpatient (CLI) | payer OTHER ==
[2017-11-24 11:31] LABS: ADD MAN DIFF? NO
[2017-11-24 11:35] LABS: BILIRUBIN,URINE NEGATIVE (NEG); CLARITY,URINE CLEAR; COLOR,URINE YELLOW; GLUCOSE,URINE NEGATIVE (NEG); NITRITE,URINE NEGATIVE (NEG); PROTEIN,URINE NEGATIVE (NEG-TRACE); UROBILINOGEN,URINE 0.2 mg/dL (0.2 mg/dL)
[2017-11-24 11:36] LABS: BASO # 0.1 x10^3/uL (0.0-0.2); BASO % 1 % (0-3); EOS # 0.1 x10^3/uL (0.0-0.7); EOS % 1 % (0-3); HEMATOCRIT 38.5 % (36.0-47.0); HEMOGLOBIN 13.3 g/dL (12.0-15.5); LYMPH # 2.2 x10^3/uL (1.0-4.8); LYMPH % 28 % (24-48); MEAN CORPUSCULAR HEMOGLOBIN 33 pg (25-35); MEAN CORPUSCULAR HGB CONC 35 g/dL (31-37); MEAN CORPUSCULAR VOLUME 94 fL (79-100); MONO # 0.6 x10^3/uL (0.0-1.1); MONO % 7 % (0-9); NEUT # 4.9 x10^3uL (1.8-7.7); NEUT % 62 % (31-73); PLATELET COUNT 301 x10^3/uL (140-400); RED CELL DISTRIBUTION WIDTH 13.1 % (11.5-14.5); WHITE BLOOD COUNT 7.9 x10^3/uL (4.0-11.0)
[2017-11-24 11:53] LABS: BACTERIA,URINE MODERATE /HPF (0-FEW); SQUAMOUS EPITHELIAL CELL,UR FEW /LPF
[2017-11-24 12:06] LABS: ALBUMIN 3.5 g/dL (3.4-5.0); ALK PHOS 84 U/L (46-116); ALT (SGPT) 18 U/L (14-59); ANION GAP 10 (6-14); AST (SGOT) 10 U/L (15-37); BLOOD UREA NITROGEN 9 mg/dL (7-20); BUN/CREATININE RATIO 13 (6-20); CALCIUM 9.3 mg/dL (8.5-10.1); CARBON DIOXIDE 26 mmol/L (21-32); CHLORIDE 103 mmol/L (98-107); CREATININE 0.7 mg/dL (0.6-1.0); GLUCOSE 111 mg/dL (70-99); POTASSIUM 3.7 mmol/L (3.5-5.1); SODIUM 139 mmol/L (136-145); TOTAL BILIRUBIN 0.2 mg/dL (0.2-1.0); TOTAL PROTEIN 7.1 g/dL (6.4-8.2)
[2017-11-24 12:14] LABS: NT-PRO BNP 88 pg/mL (0-124)
== END | disposition home or self-care (01) ==
LOC: LAB 11:05
DX: R60.0 Localized edema (principal); R82.90 Unspecified abnormal findings in urine
CPT/HCPCS: 36415; 80053; 81001; 83880; 85025; 87086

== ENCOUNTER 2017-12-12 15:17 | Emergency (ER) | payer OTHER ==
[2017-12-12 16:06] LABS: URINE HCG POC HCG POSITIVE (Negative)
[2017-12-12 16:09] LABS: BILIRUBIN,URINE SMALL (NEG); CLARITY,URINE CLOUDY; COLOR,URINE AMBER; GLUCOSE,URINE NEGATIVE (NEG); NITRITE,URINE NEGATIVE (NEG); PROTEIN,URINE 30 mg/dL (NEG-TRACE)
[2017-12-12 16:41] LABS: BACTERIA,URINE MODERATE /HPF (0-FEW); SQUAMOUS EPITHELIAL CELL,UR MANY /LPF
[2017-12-12] MEDS: ONDANSETRON ODT 4 MG TAB.RAPDIS. PO (17:13)
[2017-12-12] MEDS: HYDROcodone/APAP 5/325MG 1 TAB TABLET PO (17:13)
[2017-12-12] MEDS: METHOTREXATE SODIUM 50 MG/2 ML VIAL IM (18:30)
== END 2017-12-12 18:45 | disposition home or self-care (01) ==
LOC: ER 18:45
DX: O00.80 Other ectopic pregnancy without intrauterine pregnancy (principal); R10.9 Unspecified abdominal pain; K21.9 Gastro-esophageal reflux disease without esophagitis
CPT/HCPCS: 36415; 76801; 76817; 81001; 81025; 84702; 86850; 86900; 86901; 87086; 96372; 99285-25; Q0162

== ENCOUNTER → 2018-02-02 | Outpatient (CLI) | payer OTHER ==
[~2018-02-02] MED LIST changes: -HYDROmorphone 2 MG/ML VIAL IV; +IOHEXOL 180 MG/ML 10 ML VIAL.; +LIDOCAINE 1% PF 2 ML VIAL.; -LIDOCAINE 1% PF 2 ML VIAL. ID; -ONDANSETRON PF 4 MG/2 ML VIAL. IV; -fentaNYL PF VIAL 100 MCG/2 ML VIAL IV; +methylPREDNISolone ACETATE 40 MG/ML VIAL.; +methylPREDNISolone ACETATE 80 MG/ML VIAL.
== END | disposition home or self-care (01) ==
LOC: PNCL 07:47
DX: M51.16 Intervertebral disc disorders with radiculopathy, lumbar region (principal); K08.409 Partial loss of teeth, unspecified cause, unspecified class; K21.9 Gastro-esophageal reflux disease without esophagitis; Z98.890 Other specified postprocedural states; F43.10 Post-traumatic stress disorder, unspecified; F41.9 Anxiety disorder, unspecified; Z72.89 Other problems related to lifestyle; F17.200 Nicotine dependence, unspecified, uncomplicated
CPT/HCPCS: 62323; J1030; J1040; Q9965

== ENCOUNTER → 2018-02-16 | Outpatient (CLI) | payer OTHER | END | disposition home or self-care (01) | LOC: PNCL 12:53 | DX: M51.16 Intervertebral disc disorders with radiculopathy, lumbar region (principal); K08.409 Partial loss of teeth, unspecified cause, unspecified class; Z98.890 Other specified postprocedural states; K21.9 Gastro-esophageal reflux disease without esophagitis; F43.10 Post-traumatic stress disorder, unspecified; F41.9 Anxiety disorder, unspecified; Z72.89 Other problems related to lifestyle; F17.200 Nicotine dependence, unspecified, uncomplicated; E66.9 Obesity, unspecified; Z68.32 Body mass index [BMI] 32.0-32.9, adult; M19.90 Unspecified osteoarthritis, unspecified site | CPT/HCPCS: 62323; J1030; J1040; Q9965 ==

== ENCOUNTER 2018-02-17 01:19 | Inpatient (IN) | payer OTHER ==
[2018-02-17 01:44] LABS: BASO # 0.1 x10^3/uL (0.0-0.2); BASO % 1 % (0-3); EOS % 0 % (0-3); HEMATOCRIT 42.1 % (36.0-47.0); HEMOGLOBIN 14.6 g/dL (12.0-15.5); LYMPH # 1.6 x10^3/uL (1.0-4.8); LYMPH % 12 % (24-48); MEAN CORPUSCULAR HEMOGLOBIN 32 pg (25-35); MEAN CORPUSCULAR HGB CONC 35 g/dL (31-37); MEAN CORPUSCULAR VOLUME 93 fL (79-100); MONO # 0.2 x10^3/uL (0.0-1.1); MONO % 1 % (0-9); NEUT # 11.8 x10^3uL (1.8-7.7); NEUT % 86 % (31-73); PLATELET COUNT 412 x10^3/uL (140-400); RED BLOOD COUNT 4.51 x10^6/uL (3.50-5.40); RED CELL DISTRIBUTION WIDTH 13.5 % (11.5-14.5); WHITE BLOOD COUNT 13.8 x10^3/uL (4.0-11.0)
[2018-02-17 01:46] LABS: ADD MAN DIFF? YES
[2018-02-17 01:55] LABS: C-REACTIVE PROTEIN 10.1 mg/L (0-3.3)
[2018-02-17 01:57] LABS: ETHANOL 226 mg/dL (0-10)
[2018-02-17 02:04] LABS: BILIRUBIN,URINE NEGATIVE (NEG); CLARITY,URINE CLEAR; COLOR,URINE YELLOW; GLUCOSE,URINE NEGATIVE (NEG); NITRITE,URINE NEGATIVE (NEG); PROTEIN,URINE NEGATIVE (NEG-TRACE); UROBILINOGEN,URINE 0.2 mg/dL (0.2 mg/dL)
[2018-02-17 02:04] LABS: URINE HCG POC HCG NEGATIVE (Negative)
[2018-02-17 02:09] LABS: BACTERIA,URINE 0 /HPF (0-FEW); RBC,URINE OCC /HPF (0-2); SQUAMOUS EPITHELIAL CELL,UR OCC /LPF; WBC,URINE 0 /HPF (0-4)
[2018-02-17] MEDS ORDERED: fentaNYL PF VIAL 100 MCG/2 ML VIAL (02:10)
[2018-02-17] MEDS: fentaNYL PF VIAL 100 MCG/2 ML VIAL IV ×2 (02:16→02:55)
[2018-02-17 02:17] LABS: % LYMPHS 14 % (24-48); % MONOS 2 % (0-10); % SEGS 84 % (35-66); PLT ESTIMATE ADEQUATE (ADEQUATE)
[2018-02-17 02:49] LABS: SEDIMENTATION RATE 7 (0-25)
[2018-02-17] MEDS: MORPHINE SULFATE 4 MG/ML DISP.SYRIN. IV (03:58)
[2018-02-17] MEDS: IV NORMAL SALINE 1000ML BAG 1,000 ML IV ×3 (03:58→15:12)
[2018-02-17 04:10] LABS: ANION GAP 14 (6-14); BLOOD UREA NITROGEN 15 mg/dL (7-20); CALCIUM 8.9 mg/dL (8.5-10.1); CARBON DIOXIDE 22 mmol/L (21-32); CHLORIDE 106 mmol/L (98-107); CREATININE 0.7 mg/dL (0.6-1.0); GFR 96.4; GLUCOSE 130 mg/dL (70-99); MAGNESIUM 2.2 mg/dL (1.8-2.4); POTASSIUM 4.4 mmol/L (3.5-5.1); SODIUM 142 mmol/L (136-145)
[2018-02-17] MEDS ORDERED: diphenhydrAMINE 50 MG/ML VIAL (04:18)
[2018-02-17] MEDS ORDERED: PROCHLORPERAZINE 10 MG/2 ML VIAL. (04:18)
[2018-02-17] MEDS: diphenhydrAMINE 50 MG/ML VIAL IVP (04:24)
[2018-02-17] MEDS: PROCHLORPERAZINE 10 MG/2 ML VIAL. IV (04:24)
[2018-02-17 04:39] LABS: ALBUMIN 3.9 g/dL (3.4-5.0); ALK PHOS 108 U/L (46-116); ALT (SGPT) 21 U/L (14-59); AST (SGOT) 14 U/L (15-37); DIRECT BILIRUBIN < 0.1 mg/dL (0.0-0.2); TOTAL BILIRUBIN 0.1 mg/dL (0.2-1.0); TOTAL PROTEIN 7.7 g/dL (6.4-8.2)
[2018-02-17] MEDS ORDERED: MORPHINE SULFATE 4 MG/ML DISP.SYRIN. IV (05:15)
[2018-02-17] MEDS: IBUPROFEN 800 MG TABLET. PO ×2 (05:30→16:41)
[2018-02-17] MEDS: oxyCODONE IR 5 MG TABLET PO ×2 (09:04→16:42)
[2018-02-17] MEDS ORDERED: oxyCODONE/APAP 10/325 1 TAB TABLET PO (09:15)
[2018-02-17] MEDS ORDERED: ONDANSETRON ODT 4 MG TAB.RAPDIS. PO (09:15)
[2018-02-17] MEDS: PANTOPRAZOLE 40 MG TABLET.DR. PO (09:56)
[2018-02-17] MEDS: ASPIRIN ENTERIC COATED 81 MG TABLET.DR. PO (09:56)
[2018-02-17] MEDS: tiZANidine 4 MG TABLET. PO ×2 (09:56→10:30)
[2018-02-17] MEDS: DULoxetine HCL 30 MG CAPSULE.DR PO (09:56)
[2018-02-17] MEDS ORDERED: ALPRAZolam 0.5 MG TABLET PO (10:00)
[2018-02-17] MEDS: TAMSULOSIN 0.4 MG CAP.ER.24H. PO (11:00)
== END 2018-02-17 16:55 | disposition home or self-care (01) | DRG 552 ==
LOC: ER 01:19 → 5 SOUTH 04:30
PROVIDERS: Internal Medicine
DX: M51.17 Intervertebral disc disorders with radiculopathy, lumbosacral region (principal); K21.9 Gastro-esophageal reflux disease without esophagitis; N83.209 Unspecified ovarian cyst, unspecified side; F41.9 Anxiety disorder, unspecified; M19.90 Unspecified osteoarthritis, unspecified site; E66.9 Obesity, unspecified; G89.29 Other chronic pain; Z68.32 Body mass index [BMI] 32.0-32.9, adult; R33.9 Retention of urine, unspecified
CPT/HCPCS: 36415; 72148; 80048; 80076; 81001; 81025; 83735; 85007; 85025; 85651; 86140; 96374; 96375; 96376; 99285-25; 99406; G0480; J0780; J1200; J2060; J2270; J3010; J7030

== ENCOUNTER → 2018-04-13 | Outpatient (CLI) | payer OTHER ==
[~2018-04-13] MED LIST changes: +ALPR0.5T PO; +ASPI-482 PO; +CONTRAST GIVEN. MC PRN; +DIAZ5TAB PO; +DULO30CA2 PO; +HYDR-971 PO; -IOHEXOL 180 MG/ML 10 ML VIAL.; -LIDOCAINE 1% PF 2 ML VIAL.; +MEDR150D3 IM; +META-21 PO; +NALT1TAB PO; +NAPR-514 PO; +NITR100C62 PO; +NORE5TAB3 PO; +OMEP20TA63 PO; +ONDA4TAB10 PO; +ONDA4TAB10 SL; +OXYC-323 PO; +OXYC-328 PO; +PANT40TA5 PO; +PNV1TABL25 PO; +PROC25SU21 RC; +TIZA4TAB PO; +birth control; -methylPREDNISolone ACETATE 40 MG/ML VIAL.; -methylPREDNISolone ACETATE 80 MG/ML VIAL.
[2018-04-13] MEDS: LIDOCAINE WITH 8.4% SOD BICARB 3 ML DISP.SYRIN. INJ ONE (09:49)
[2018-04-13] MEDS: IOHEXOL 180 MG/ML 10 ML VIAL. IT ONE (09:49)
[2018-04-13 10:07] VITALS: BP 128/73
--- NOTE | 2018-04-14 08:30 | RAD ---
Lumbar myelogram, 04/13/2018: HISTORY: Back pain, right toe numbness, radiculopathy Under local anesthesia, aseptic conditions and fluoroscopic guidance a lumbar puncture was performed at the mid L2 level utilizing a 25-gauge Emilia spinal needle. Good clear CSF flow was obtained following which 14 cc of Omnipaque 180 was injected into the thecal sac. The spinal needle was then removed and hemostasis obtained. Appropriate digital imaging was then performed. 2.1 minutes of fluoroscopy time was utilized. 13 fluoroscopic spot images were recorded. The patient tolerated the procedure well and was sent to CT in good condition. The following findings are delineated on the myelogram: 1. There are mild anterior and posterior extradural defects at L4-5, best seen in the upright position. The thecal sac narrows down to an AP diameter of 6 mm in the upright position. No significant instability was seen with flexion or extension. 2. The thecal sac throughout the lumbar spine is at the lower limits of normal in size measuring approximately 10 mm in AP diameter. 3. No other significant intradural or extradural abnormality is detected. 4. There is symmetric opacification of the nerve root sleeves. CT of the lumbar spine-post myelogram, 04/13/2018: Multidetector CT imaging was performed with multiplanar reconstructions produced. The following findings are delineated: 1. No significant posterior disc bulge or protrusion is seen at L1-2, L2-3 or L3-4. The central spinal canal and neural foramina are well-maintained. 2. At L4-5 there is minimal posterior annular bulging. In the supine position for these scans of the thecal sac measures 9 mm in AP diameter at the midline. The neural foramina are well-maintained. 3. At L5-S1 there is a small to moderate sized posterior disc protrusion at the midline. This effaces the anterior epidural fat. It abuts the S1 nerve root sleeves with only slight effacement of the proximal aspect of the right S1 nerve root sleeve. The thecal sac measures 9 mm in AP diameter at the midline. The neural foramina are well-maintained. 4. The visualized paraspinous soft tissues are unremarkable. IMPRESSION: 1. Small to moderate sized posterior disc protrusion at the midline at L5-S1. 2. Mild posterior disc bulging at L4-5 producing mild central spinal stenosis on the upright myelogram images. PQRS Compliance Statement: One or more of the following individualized dose reduction techniques were utilized for this examination: 1. Automated exposure control 2. Adjustment of the mA and/or kV according to patient size 3. Use of iterative reconstruction technique Electronically signed by: Russ Delgado MD (04/13/2018 12:03 PM) [facility] DICTATED and SIGNED BY: RUSS DELGADO MD DATE: 04/13/18 1003 MTDD
== END | disposition home or self-care (01) ==
LOC: RAD 14:21
PROVIDERS: ATTEND Neurological Surgery
DX: M51.27 Other intervertebral disc displacement, lumbosacral region (principal); M48.061 Spinal stenosis, lumbar region without neurogenic claudication; I10 Essential (primary) hypertension; K21.9 Gastro-esophageal reflux disease without esophagitis; E66.9 Obesity, unspecified; Z87.891 Personal history of nicotine dependence; Z87.39 Personal history of other diseases of the musculoskeletal system and connective tissue; Z68.32 Body mass index [BMI] 32.0-32.9, adult
CPT/HCPCS: 72132; 72265; Q9965

== ENCOUNTER → 2018-05-11 | Outpatient (CLI) | payer OTHER ==
[2018-04-13 10:07] VITALS: BP 128/73
[~2018-05-11] MED LIST changes: -CONTRAST GIVEN. MC PRN
--- NOTE | 2018-05-11 15:09 | PAIN ---
DATE OF SERVICE: 05/11/2018 DIAGNOSES: Lumbar radiculopathy with lumbar degenerative disk disease. HISTORY OF PRESENT ILLNESS: The patient is a 33-year-old female who returns for followup status post lumbar epidural steroid injections x 2. The patient also had recent evaluation with her neurosurgeon as she was not getting significantly better for more than about 2 weeks after the injection. The patient reports still significant back spasms, both of her legs, worse on the right than the left with numbness and tingling into the right leg as well as across the low back, spasms in the back. The patient had a new myelogram without significant surgical findings per her neurosurgeon who is recommending other modalities. We discussed a potential for a spinal cord stimulator trial, and she would like to look into this. The patient reports still significant pain in the low back, right leg. It was mostly anterior thigh, medial thigh with numbness and tingling, aching and shooting, worse with standing, walking, affecting her working abilities very significantly as well as life functions. The patient is quite tearful today describing these. 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 The patient reports she has difficulty dealing with all of her life functions because of the pain, which is aching, shooting, constant, becoming more severe, more unbearable and radiating in the right leg. The patient reports no new motor or sensory deficits, no bowel or bladder incontinence. PHYSICAL EXAMINATION: VITAL SIGNS: The patient's blood pressure 140/60, pulse 76, respirations 16, temperature 98.4 degrees Fahrenheit, weight is 231 pounds. GENERAL: The patient is awake, alert, oriented, appropriate, very pleasant demeanor. HEENT: Head shows normocephalic, atraumatic. Extraocular movements intact and symmetrical. Oral cavity: Mucous membranes moist and pink. Dentition is intact. NECK: Shows anterior throat supple without palpable lymphadenopathy noted. Swallow reflex symmetrical. CHEST: Shows normal with inspection. Breath sounds clear to auscultation bilaterally. HEART: Shows S1, S2 clear. No murmurs auscultated. ABDOMEN: Soft, nontender, nondistended. No palpable organomegaly is noted. No rebound or guarding demonstrated. BACK: Shows spine grossly in the midline. Normal appearing thoracic kyphosis, some minor flattening of lumbar lordotic curvature. Lumbar paraspinous muscle shows symmetrical on inspection and palpation shows some moderate tenderness bilaterally, but only diffusely without radiation. The patient has good rotational motion of lumbar spine, both laterally as well as extension and flexion without difficulty. EXTREMITIES: Lower extremities show deep tendon reflexes at 2+ in the patellar, 1+ tendo calcaneus tendons. Motor exam is approximately 4 on a scale of 5 with right dorsiflexion, extension, 5/5 on the left. Peripheral pulses are 1+ posterior tibia. No peripheral edema is noted. PLAN: Options were discussed with the patient. The patient's old chart was reviewed as her current medication regimen updated. Current review of systems updated today as well. We will give the patient some information regarding spinal cord stimulators and work on preauthorization for a stimulator trial as she would like to pursue this again, this may be a good option for her as she has no surgical lesion, still significant radicular pain and low back pain, especially in the right leg, which is affecting her life significantly. The patient will review the material, and we will work on preauthorization for spinal cord stimulator trial. RIVAS DAWN MD DR: JOSE CRUZ/ancelmo JOB#: [id number] / [id number]
== END | disposition home or self-care (01) ==
LOC: PNCL 07:34
PROVIDERS: ATTEND Anesthesiology
DX: M51.16 Intervertebral disc disorders with radiculopathy, lumbar region (principal)
CPT/HCPCS: 99212

== ENCOUNTER → 2018-05-26 | Outpatient (CLI) | payer OTHER ==
[2018-04-13 10:07] VITALS: BP 128/73
[2018-05-26 10:08] LABS: BILIRUBIN,URINE NEGATIVE (NEG); CLARITY,URINE CLEAR; COLOR,URINE YELLOW; NITRITE,URINE NEGATIVE (NEG); PH,URINE 5.5; PROTEIN,URINE NEGATIVE (NEG-TRACE); UROBILINOGEN,URINE 0.2 mg/dL (0.2 mg/dL)
[2018-05-26 10:09] LABS: BACTERIA,URINE MOD /HPF (0-FEW); RBC,URINE OCC /HPF (0-2); SQUAMOUS EPITHELIAL CELL,UR FEW /LPF
== END | disposition home or self-care (01) ==
LOC: LAB 09:17
PROVIDERS: ATTEND Obstetrics & Gynecology
DX: N30.90 Cystitis, unspecified without hematuria (principal)
CPT/HCPCS: 81001; 87086

== ENCOUNTER → 2018-06-09 | Outpatient (CLI) | payer OTHER ==
[2018-04-13 10:07] VITALS: BP 128/73
[2018-06-09 08:40] LABS: BILIRUBIN,URINE NEGATIVE (NEG); CLARITY,URINE CLEAR; COLOR,URINE YELLOW; NITRITE,URINE NEGATIVE (NEG); PH,URINE 7.5; PROTEIN,URINE NEGATIVE (NEG-TRACE); UROBILINOGEN,URINE 0.2 mg/dL (0.2 mg/dL)
[2018-06-09 08:53] LABS: SQUAMOUS EPITHELIAL CELL,UR MANY /LPF
[2018-06-09 08:54] LABS: BACTERIA,URINE FEW /HPF (0-FEW)
== END | disposition home or self-care (01) ==
LOC: LAB 05:42
PROVIDERS: ATTEND Internal Medicine
DX: N30.90 Cystitis, unspecified without hematuria (principal)
CPT/HCPCS: 81001; 87086

== ENCOUNTER 2018-12-05 19:24 | Emergency (ER) | payer OTHER ==
[~2018-12-05] VITALS: Ht 170.2 cm; Wt 99.8 kg
[~2018-12-05 19:24] MED LIST changes: +HYDR-3164 PO; -HYDR-971 PO; -OXYC-323 PO; -OXYC-328 PO; +OXYC1TAB15 PO; +OXYC1TAB22 PO
[2018-12-05 19:25] VITALS: BP 166/102
[2018-12-05 20:43] LABS: BILIRUBIN,URINE SMALL (NEG); CLARITY,URINE CLEAR; COLOR,URINE AMBER; NITRITE,URINE NEGATIVE (NEG); PROTEIN,URINE NEGATIVE (NEG-TRACE)
[2018-12-05] MEDS ORDERED: DEXAMETHASONE SOD PHOS 4 MG/ML VIAL IM ONE (20:45)
[2018-12-05] MEDS ORDERED: MORPHINE SULFATE 10 MG/ML VIAL. IM ONE (20:45)
[2018-12-05] MEDS ORDERED: ONDANSETRON ODT 4 MG TAB.RAPDIS. PO ONE (20:45)
[2018-12-05 20:49] LABS: SQUAMOUS EPITHELIAL CELL,UR FEW /LPF
[2018-12-05 20:50] LABS: BACTERIA,URINE FEW /HPF (0-FEW)
[2018-12-05 20:51] LABS: RBC,URINE 0 /HPF (0-2); WBC,URINE OCC /HPF (0-4)
[2018-12-05] MEDS ORDERED: fentaNYL PF VIAL 100 MCG/2 ML VIAL IM ONE (21:30)
[2018-12-05] MEDS ORDERED: ORPH100T PO (21:32)
--- NOTE | 2018-12-05 21:32 | PHYS DOC ---
Past Medical History Past Medical History: Endometriosis, Other Additional Past Medical Histor: ACID REFLUX,Ruptured ovarian cyst, BULGING DISCS, MISCARRIAGE X2 Past Surgical History: Other Additional Past Surgical Histo: Dental surgery, HISTOSCOPY, laproscopy Alcohol Use: Occasionally Drug Use: None Adult General Chief Complaint Chief Complaint: BACK PAIN OR INJURY [facility] HPI Patient is a 33 year old [f__sex] who presents with [] Review of Systems Review of Systems Constitutional: Denies fever or chills [] Eyes: Denies change in visual acuity, redness, or eye pain [] HENT: Denies nasal congestion or sore throat [] Respiratory: Denies cough or shortness of breath [] Cardiovascular: No additional information not addressed in HPI [] GI: Denies abdominal pain, nausea, vomiting, bloody stools or diarrhea [] : Denies dysuria or hematuria [] Musculoskeletal: Denies back pain or joint pain [] Integument: Denies rash or skin lesions [] Neurologic: Denies headache, focal weakness or sensory changes [] Endocrine: Denies polyuria or polydipsia [] All other systems were reviewed and found to be within normal limits, except as documented in this note. Current Medications Current Medications Current Medications Medications (Trade) Dose Ordered Sig/Sugey Start Time Stop Time Status Last Admin Dose Admin Dexamethasone Sodium Phosphate (Decadron) 10 mg 1X ONCE 12/05/18 20:45 12/05/18 20:46 DC 12/05/18 20:51 10 MG Fentanyl Citrate (Fentanyl 2ml Vial) 100 mcg 1X ONCE 12/05/18 21:30 12/05/18 21:31 Morphine Sulfate (Morphine Sulfate) 5 mg 1X ONCE 12/05/18 20:45 12/05/18 20:46 DC 12/05/18 20:51 5 MG Ondansetron HCl (Zofran Odt) 4 mg 1X ONCE 12/05/18 20:45 12/05/18 20:46 DC 12/05/18 20:45 4 MG Allergies Allergies Allergies Coded Allergies Type Severity Reaction Last Updated Verified No Known Drug Allergies 08/11/17 No Physical Exam Physical Exam Constitutional: Well developed, well nourished, no acute distress, non-toxic appearance. [] HENT: Normocephalic, atraumatic, bilateral external ears normal, oropharynx moist, no oral exudates, nose normal. [] Eyes: PERRLA, EOMI, conjunctiva normal, no discharge. [] Neck: Normal range of motion, no tenderness, supple, no stridor. [] Cardiovascular:Heart rate regular rhythm, no murmur [] Lungs & Thorax: Bilateral breath sounds clear to auscultation [] Abdomen: Bowel sounds normal, soft, no tenderness, no masses, no pulsatile masses. [] Skin: Warm, dry, no erythema, no rash. [] Back: No tenderness, no CVA tenderness. [] Extremities: No tenderness, no cyanosis, no clubbing, ROM intact, no edema. [] Neurologic: Alert and oriented X 3, normal motor function, normal sensory function, no focal deficits noted. [] Psychologic: Affect normal, judgement normal, mood normal. [] Current Patient Data Vital Signs Vital Signs Date Time Temp Pulse Resp B/P (MAP) Pulse Ox O2 Delivery O2 Flow Rate FiO2 12/05/18 20:51 18 98 Room Air 12/05/18 19:25 98.1 107 166/102 (123) 98.1 Lab Values Laboratory Tests Test 12/05/18 20:25 12/05/18 20:30 Urine Collection Type Unknown Urine Color Disha Urine Clarity Clear Urine pH 6.0 Urine Specific [place] >=1.030 Urine Protein Negative mg/dL (NEG-TRACE) Urine Glucose (UA) Negative mg/dL (NEG) Urine Ketones (Stick) Trace mg/dL (NEG) Urine Blood Negative (NEG) Urine Nitrite Negative (NEG) Urine Bilirubin Small (NEG) Urine Urobilinogen Dipstick 1.0 mg/dL (0.2 mg/dL) Urine Leukocyte Esterase Negative (NEG) Urine RBC 0 /HPF (0-2) Urine WBC Occ /HPF (0-4) Urine Squamous Epithelial Cells Few /LPF Urine Bacteria Few /HPF (0-FEW) Urine Mucus Marked /LPF POC Urine HCG, Qualitative Hcg negative (Negative) EKG EKG [] Radiology/Procedures Radiology/Procedures [] Course & Med Decision Making Course & Med Decision Making Pertinent Labs and Imaging studies reviewed. (See chart for details) [] Dragon Disclaimer Dragon Disclaimer This electronic medical record was generated, in whole or in part, using a voice recognition dictation system. Departure Departure Impression: Primary Impression: Acute exacerbation of chronic low back pain Disposition: 01 HOME, SELF-CARE Condition: STABLE Referrals: LIN MIN MD (PCP) RIVAS DAWN MD Patient Instructions: Chronic Back Pain Scripts Orphenadrine Citrate (ORPHENADRINE CITRATE) 100 Mg Tablet.er 1 TAB PO BID PRN for MUSCLE SPASMS, #20 TAB Prov: JAROD CALL DO 12/05/18 JAROD CALL DO December 05, 2018 21:32
== END 2018-12-05 21:48 | disposition home or self-care (01) ==
LOC: ER 19:24
DX: G89.29 Other chronic pain (principal); M54.5 Low back pain; K21.9 Gastro-esophageal reflux disease without esophagitis
CPT/HCPCS: 81001; 81025; 96372; 99284; J1100; J2270; J3010; Q0162; 99285

== ENCOUNTER → 2019-04-24 | Outpatient (CLI) | payer OTHER ==
[~2019-04-24] MED LIST changes: +ORPH100T PO; -PANT40TA5 PO; +PANT40TA77 PO; -TIZA4TAB PO; +TIZA4TAB2 PO
[2019-04-24 06:20] LABS: BASO # 0.1 x10^3/uL (0.0-0.2); BASO % 1 % (0-3); EOS # 0.2 x10^3/uL (0.0-0.7); EOS % 2 % (0-3); HEMATOCRIT 37.3 % (36.0-47.0); HEMOGLOBIN 12.8 g/dL (12.0-15.5); LYMPH # 3.2 x10^3/uL (1.0-4.8); LYMPH % 40 % (24-48); MEAN CORPUSCULAR HEMOGLOBIN 31 pg (25-35); MEAN CORPUSCULAR HGB CONC 34 g/dL (31-37); MEAN CORPUSCULAR VOLUME 91 fL (79-100); MONO # 0.7 x10^3/uL (0.0-1.1); MONO % 8 % (0-9); NEUT # 3.9 x10^3/uL (1.8-7.7); NEUT % 49 % (31-73); PLATELET COUNT 316 x10^3/uL (140-400); RED BLOOD COUNT 4.09 x10^6/uL (3.50-5.40); RED CELL DISTRIBUTION WIDTH 14.2 % (11.5-14.5)
[2019-04-24 06:45] LABS: CALCIUM 8.9 mg/dL (8.5-10.1); CREATININE 0.7 mg/dL (0.6-1.0); GFR 95.8; POTASSIUM 3.9 mmol/L (3.5-5.1)
== END | disposition home or self-care (01) ==
LOC: LAB 06:07
PROVIDERS: ATTEND Nurse Practitioner Family
DX: Z13.21 Encounter for screening for nutritional disorder (principal); R03.0 Elevated blood-pressure reading, without diagnosis of hypertension
CPT/HCPCS: 36415; 80048; 82306; 84443; 85025

== ENCOUNTER 2019-06-28 11:15 | Emergency (ER) | payer SELFPAY ==
[~2019-06-28] VITALS: Ht 170.2 cm; Wt 99.8 kg
[2019-06-28 11:47] VITALS: BP 138/85
--- NOTE | 2019-06-28 12:07 | PHYS DOC ---
Past Medical History Past Medical History: Endometriosis, Other Additional Past Medical Histor: ACID REFLUX,Ruptured ovarian cyst, BULGING DISCS, MISCARRIAGE X2 Past Surgical History: Other Additional Past Surgical Histo: Dental surgery, hysteroscopy, laproscopy Alcohol Use: Occasionally Drug Use: None Adult General Chief Complaint Chief Complaint: UPPER EXTREMITY PAIN HPI HPI Patient is a 34 year old female who presents with 2 weeks ago had blood drawn out of her left before meals. She states that since then she's had some pain in that area but no redness and nothing that really bothered her. Patient states that last night she started having pain in the area of the left before meals and was using a heating pad and ice. Patient states she awoke this morning and was read, tender and hurts badly to move her arm at the joint. She states she has chronic back problems and needs surgery so she started on oxycodone and i buprofen she is taking them this morning at 7:00. Patient states with moving the arm it is a 10 out of 10 pain that is sharp. Patient states just sitting the pain is a 6 out of 10. Patient is guarding the arm. Review of Systems Review of Systems Integument: Redness, tender, Left AC. Denies rash or skin lesions [] All other systems were reviewed and found to be within normal limits, except as documented in this note. Current Medications Current Medications Current Medications Medications (Trade) Dose Ordered Sig/Sugey Start Time Stop Time Status Last Admin Dose Admin Oxycodone/ Acetaminophen (Percocet 5/325) 1 tab 1X ONCE 06/28/19 12:15 06/28/19 12:16 DC 06/28/19 12:27 1 TAB Allergies Allergies Allergies Coded Allergies Type Severity Reaction Last Updated Verified No Known Drug Allergies 08/11/17 No Physical Exam Physical Exam Constitutional: Well developed, well nourished, no acute distress, non-toxic appearance. [] HENT: Normocephalic, atraumatic, bilateral external ears normal, oropharynx moist, no oral exudates, nose normal. [] Eyes: PERRLA, EOMI, conjunctiva normal, no discharge. [] Neck: Normal range of motion, no tenderness, supple, no stridor. [] Cardiovascular:Heart rate regular rhythm, no murmur [] Lungs & Thorax: Bilateral breath sounds clear to auscultation [] Abdomen: Bowel sounds normal, soft, no tenderness, no masses, no pulsatile masses. [] Skin: Warm, dry, erythema, hard, tender, hot at Left AC, no rash. [] Back: No tenderness, no CVA tenderness. [] Extremities: No tenderness, no cyanosis, no clubbing, ROM intact, no edema. [] Neurologic: Alert and oriented X 3, normal motor function, normal sensory function, no focal deficits noted. [] Psychologic: Affect normal, judgement normal, mood normal. [] Current Patient Data Vital Signs Vital Signs Date Time Temp Pulse Resp B/P (MAP) Pulse Ox O2 Delivery O2 Flow Rate FiO2 06/28/19 11:47 98.6 110 22 138/85 (102) 98 Room Air 98.6 EKG EKG [] Radiology/Procedures Radiology/Procedures [] Impressions: [facility] [address] [place] [address] IMAGING REPORT Signed PATIENT: PABLO MCGUIRE ACCOUNT: [id number] : 1985 LOCATION: ER AGE: 34 SEX: F EXAM STATUS: REG ER ORD. PHYSICIAN: OLIVIA RODRIGEZ APRN REASON: Left AC pain, redness PROCEDURE: VENOUS UPPER EXTREMITY LEFT VENOUS UPPER EXTREMITY LEFT History: Left antecubital pain and redness, severe arm pain Comparison: None. Findings: Multiple grayscale, color, duplex spectral analysis waveform images of the left upper extremity veins are submitted. There is abnormal echogenicity in the cephalic vein at the level of the antecubital region, minimal flow present. Remainder of interrogated left upper extremity veins are patent with normal phasicity and color-flow. Impression: 1. There is thrombus in the cephalic vein at the level of the antecubital region. 2. No other thrombus is demonstrated of the interrogated left upper extremity veins. Results were discussed with Olivia Rodrigez at 06/28/2019 1:54 PM. Electronically signed by: Maddie Salas MD (06/28/2019 1:57 PM) [facility] DICTATED and SIGNED BY: MADDIE SALAS MD DATE: 06/28/19 6209 Course & Med Decision Making Course & Med Decision Making Denies numbness or tingling. Skin is pink warm and dry. Cap refill is less than 3 seconds. Radial pulses strong and present. Patient has a egg sized red, hard, tender area to the left before meals. There is no red streaking. Patient is afebrile. Patient is guarding the arm. Alert and oriented. Denies chest pain, soa, calf tenderness, dizziness, headache, weakness, coolness of the extremity, skin color changes, numbness or tingling. Ambulatory with a steady gait. No laxity in the joint. No swelling in the actual elbow joint. The only redness is contained to the left AC where she blood drawn. Patient is refusing any pain medications at this time. US shows Impression: 1. There is thrombus in the cephalic vein at the level of the antecubital region. 2. No other thrombus is demonstrated of the interrogated left upper extremity veins. Patient is placed on Fondaparainux sodium per Dr Wilkerson. Patient is currently on Oxycodone at home. Dragon Disclaimer Dragon Disclaimer This electronic medical record was generated, in whole or in part, using a voice recognition dictation system. Departure Departure Impression: Primary Impression: Cephalic vein thrombosis, left Disposition: 01 HOME, SELF-CARE Condition: STABLE Referrals: LIN MIN MD (PCP) Patient Instructions: Phlebitis, [id number] Additional Instructions: Stop taking aspirin until after he finished her 5 doses. Follow-up with her primary care provider. Scripts Fondaparinux Sodium (FONDAPARINUX SODIUM) 7.5 Mg/0.6 Ml Disp.syrin 7.5 MG SQ DAILY for 5 Days, #5 DIS.SYR Prov: OLIVIA RODRIGEZ APRN 06/28/19 OLIVIA RODRIGEZ APRN Jun 28, 2019 12:07
[2019-06-28] MEDS ORDERED: oxyCODONE/APAP 5/325 1 TAB TABLET PO ONE (12:15)
--- NOTE | 2019-06-28 14:00 | RAD ---
VENOUS UPPER EXTREMITY LEFT History: Left antecubital pain and redness, severe arm pain Comparison: None. Findings: Multiple grayscale, color, duplex spectral analysis waveform images of the left upper extremity veins are submitted. There is abnormal echogenicity in the cephalic vein at the level of the antecubital region, minimal flow present. Remainder of interrogated left upper extremity veins are patent with normal phasicity and color-flow. Impression: 1. There is thrombus in the cephalic vein at the level of the antecubital region. 2. No other thrombus is demonstrated of the interrogated left upper extremity veins. Results were discussed with Olivia Rodrigez at 06/28/2019 1:54 PM. Electronically signed by: Pineda Lopez MD (06/28/2019 1:57 PM) [facility]
[2019-06-28] MEDS ORDERED: FOND7.5D9 SQ (14:37)
== END 2019-06-28 14:54 | disposition home or self-care (01) ==
LOC: ER 11:15
DX: I82.612 Acute embolism and thrombosis of superficial veins of left upper extremity (principal); N80.9 Endometriosis, unspecified; K21.9 Gastro-esophageal reflux disease without esophagitis; Z98.890 Other specified postprocedural states
CPT/HCPCS: 93971; 99284

== ENCOUNTER → 2020-07-17 | Outpatient (CLI) | payer OTHER ==
[~2020-07-17] MED LIST changes: +FOND7.5D9 SQ
--- NOTE | 2020-07-17 09:19 | KCIC ---
MRI of the lumbar spine without contrast 07/17/2020 CLINICAL HISTORY: Low back pain which radiates down the right leg. TECHNIQUE: Unenhanced T1-weighted, T2-weighted and inversion recovery sagittal and T1-weighted and T2 -weighted axial images of the lumbar spine were obtained. FINDINGS: Minimal S-shaped curvature of the thoracolumbar spine is seen. Degenerative signal changes and loss of height are seen involving the L4-5 and L5-S1 discs. Degenerative signal changes are seen within the marrow surrounding these discs. The conus medullaris is normal morphology, position, and s ignal characteristics. At the L1-2, L2-3 and L3-4 disc spaces there are minimal generalized disc bulges. Degenerative change s are seen involving the facet joints bilaterally. There is mild ligamentum flavum hypertrophy bilate rally. These findings when combined do not result in significant central spinal canal or neural heidi inal stenosis. At the L4-5 disc space there is a mild generalized disc bulge. Degenerative changes are seen involvin g the facet joints bilaterally. There is mild ligamentum flavum hypertrophy bilaterally. There are sm all facet joint effusions bilaterally. These findings when combined result in very mild central spina l canal stenosis. No neural foraminal stenosis is seen. At the L5-S1 disc space there is a mild generalized disc bulge. Superimposed on this disc bulge is a central/left paracentral focal disc protrusion. This measures 3 mm in AP diameter. Degenerative jaquez es are seen involving the facet joints bilaterally. There is mild ligamentum flavum hypertrophy bilat erally. These findings when combined do not result in significant central spinal canal or neural fora reyna stenosis. IMPRESSION: The changes of degenerative disc disease are seen involving the lumbar spine. These find ings result in very mild central spinal canal stenosis at L4-5. No neural foraminal stenosis is seen. Electronically signed by: Nathan Craig MD (07/17/2020 9:16 AM) [place] [id number]
== END ==
LOC: KCIC MRI 08:11
PROVIDERS: ATTEND Orthopaedic Surgery
DX: M51.36 Other intervertebral disc degeneration, lumbar region (principal); M51.27 Other intervertebral disc displacement, lumbosacral region; M47.817 Spondylosis without myelopathy or radiculopathy, lumbosacral region; M89.38 Hypertrophy of bone, other site; M48.061 Spinal stenosis, lumbar region without neurogenic claudication
CPT/HCPCS: 72148

== ENCOUNTER → 2021-03-12 | Outpatient (CLI) | payer OTHER ==
--- NOTE | 2021-03-12 15:17 | PDOC ---
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 Patient reports the pain is increasing however in the low back itself without the radiating quality that was in her right lower extremity previously patient reports the pain is worse with standing walking changing positions sitting for prolonged periods wakes her from sleep every 2-3 hours patient reports getting much worse with time rates a 9 on scale 10 is worse over the past week 7 on average 6 its least and is a 7 today patient was aching dull shooting across the low back stabbing can be constant unbearable but not rating to the lower extremity at this time. Patient reports no loss of motor function no bowel or bladder incontinence some bladder retention with the pain at its worst. Physical Exam: VS: Blood pressure is 120/89 pulse 109 respirations 18 temperature is 98.7 F height is 5 feet 7 inches weight is 192 pounds PE: PHYSICAL EXAMINATION: GENERAL: The patient is awake, alert, oriented, appropriate, very pleasant in demeanor. HEENT: Shows normocephalic, atraumatic. Extraocular movements are intact and symmetrical. Oral cavity: Mucous membranes moist and pink. Dentition is intact. NECK: Shows anterior throat supple without palpable lymphadenopathy noted. Swallow reflex symmetrical. CHEST: Shows normal on inspection. Breath sounds are clear bilaterally, no rales rhonchi or wheezes auscultated. HEART: Shows S1, S2 clear. No murmurs auscultated. ABDOMEN: Soft, nontender, nondistended, obese. No palpable organomegaly is noted. BACK: Shows spine grossly in the midline. Normal-appearing cervical lordotic curvature. There is slightly increased thoracic kyphosis, some minor flattening of the lumbar lordotic curvature. Lumbar paraspinous muscles show symmetrical on inspection, on palpation shows some moderate tenderness diffusely throughout the upper, middle and lower distribution of the paraspinous muscles without specific trigger points, without radiation of pain. The patient has good rotational motion of the lumbar spine, both laterally as well as extension and flexion with significant pain reported with extension lumbar spine axial loading also right and left lateral rotation with moderate tenderness greater than 10 degrees rotation forward flexion 45 degrees elicits no increased pain. No tenderness over the spinous processes, sacrum or sacroiliac regions. EXTREMITIES: Lower extremities show deep tendon reflexes 2+ in the patellar and tendo calcaneus tendons. Motor exam is 4 on a scale of 5 with right dorsiflexion, extension, quadriceps and hamstring flexion and 5/5 on the left. Peripheral pulses are 1+ posterior tibial. No peripheral edema is noted bilaterally. Lower extremities are warm and dry to touch, equal in color and appearance. SKIN: Shows warm and dry, good turgor. No edema. No sores, rashes or bruising throughout. Procedure: Procedure: Options were discussed with the patient. Patient's old chart was reviewed as her current medication regimen updated current review of systems updated today as well. We will reschedule patient for return for bilateral lumbar facet medial branch blocks L4-5 and L5-S1 levels. Patient has a prior engagement today and would like to schedule for a day where she is able to rest after the procedure. Patient encouraged to maintain activity stretching strength exercises as well as nutrition and weight loss encouraged. Medication Injected: Med Injected: None Condition at Discharge: Condition at Discharge: Condition at discharge is stable. RIVAS DAWN MD Mar 12, 2021 15:17
== END | disposition home or self-care (01) ==
LOC: PNCL 14:32
PROVIDERS: ATTEND Anesthesiology
DX: M51.16 Intervertebral disc disorders with radiculopathy, lumbar region (principal); K21.9 Gastro-esophageal reflux disease without esophagitis; F41.9 Anxiety disorder, unspecified; F17.210 Nicotine dependence, cigarettes, uncomplicated; Z79.82 Long term (current) use of aspirin; Z79.899 Other long term (current) drug therapy; Z98.890 Other specified postprocedural states; Z72.89 Other problems related to lifestyle
CPT/HCPCS: 99212; G0463

== ENCOUNTER → 2021-04-07 | Outpatient (CLI) | payer OTHER ==
[~2021-04-07] MED LIST changes: +BUPIVACAINE MPF 0.25% 10 ML VIAL. ONE; +IOHEXOL 180 MG/ML 10 ML VIAL. ONE; +methylPREDNISolone ACETATE 80 MG/ML VIAL. ONE
--- NOTE | 2021-04-07 15:47 | PDOC ---
Progress Note - Pain Clinic Date of Service: DOS: DATE: 04/07/21 TIME: 15:42 Diagnosis: Dx: Lumbar radiculopathy with lumbar degenerative disc disease lumbar and lumbosacral spondylosis History or Present Illness: HPI: 36-year-old female returns for follow-up status post lumbar epidural steroid injection in 2018 where patient did well initially but the pain now is only in the low back right greater than left and present bilaterally with extended standing walking extended sitting wakes her from sleep battery 4 hours patient reports the pain is a 10 on scale 10 is worse over the past week 5 on average 5 its least is a 5 today described as in the low back bilaterally not radiating to the lower extremities but is aching and sharp in the back shooting across the back burning stabbing can be constant severe much worse on the right side than the left. Patient reports no loss of motor function but significant tenderness with standing getting up from a seated position especially standing for prolonged periods more than even a few minutes walking and sitting for more than 20 to 30 minutes especially riding in a car exacerbates the pain significantly. Patient reports no loss of motor function no bowel or bladder incontinence. Physical Exam: VS: Blood pressure is 122/78 pulse 80 respirations 18 temperature 97.8 F height 5 feet 7 inches weight is 196 pounds PE: PHYSICAL EXAMINATION: GENERAL: The patient is awake, alert, oriented, appropriate, very pleasant in demeanor HEENT: Shows normocephalic, atraumatic. Extraocular movements are intact and symmetrical. Oral cavity: Mucous membranes moist and pink. Dentition is intact. NECK: Shows anterior throat supple without palpable lymphadenopathy noted. Swallow reflex symmetrical. CHEST: Shows normal on inspection. Breath sounds are clear bilaterally. HEART: Shows S1, S2 clear. No murmurs auscultated. ABDOMEN: Soft, nontender, nondistended, obese. No palpable organomegaly is noted. BACK: Shows spine grossly in the midline. Normal-appearing cervical lordotic curvature. There is slightly increased thoracic kyphosis, some minor flattening of the lumbar lordotic curvature. Lumbar paraspinous muscles show symmetrical on inspection, on palpation shows some moderate tenderness diffusely throughout the upper, middle and lower distribution of the paraspinous muscles without specific trigger points, without radiation of pain. The patient has good rotational motion of the lumbar spine, both laterally as well as extension and flexion with significant tenderness with right greater than left lateral rotation greater than 10 degrees as well as extension with significant tenderness in the right greater than left low back forward flexion 45 degrees is performed with decrease of pain. No tenderness over the spinous processes, sacrum or sacroiliac regions. EXTREMITIES: Lower extremities show deep tendon reflexes 2+ in the patellar and tendo calcaneus tendons. Motor exam is 4 on a scale of 5 with right dorsiflexion, extension, quadriceps and hamstring flexion and 5/5 on the left. Peripheral pulses are 1+ posterior tibial. No peripheral edema is noted bilaterally. Lower extremities are warm and dry to touch, equal in color and appearance. SKIN: Shows warm and dry, good turgor. No edema. No sores, rashes or bruising throughout. Procedure: Procedure: Options were discussed with the patient. Patient's old chart was reviewed as her current medication regimen updated current review of systems updated today as well. We will proceed with bilateral L4-5 and L5-S1 facet medial branch injections today with fluoroscopic guidance. Risks were discussed including but not limited to: Bleeding, infection, possibility of epidural hematoma and subsequent neurological compromise, dural puncture, headaches, spinal cord and/or nerve damage, side effects of steroid medication, and poor results regarding pain control. Patient understands and wished to proceed. Patient return to the clinic in approximate 2 weeks for follow-up, was counseled as return appointment, activity level, and side effects to be aware of. Medication Injected: Med Injected: Under sterile prep and drape using C-arm fluoroscopic guidance AP and lateral and oblique views, bilateral L4-5 and L5-S1 facet joint MB's injections were performed, using quinke needles with stylette's x4,, medications injected: 120 mg Depo-Medrol +4 cc 0.25% bupivacaine +2 cc contrast. Condition at discharge stable patient tolerated the procedure well and no complications. Condition at Discharge: Condition at Discharge: Condition at discharge is stable, patient already the procedure well and had no complications. RIVAS DAWN MD Apr 07, 2021 15:47
--- NOTE | 2021-04-07 15:48 | PDOC4 ---
Procedure Note: ICD 10 Code: ICD 10 Code: M4 7.816 M4 7.17 M51.36 Procedure Note: Patient was consented for bilateral L4-5 and L5-S1 facet medial branch blocks with fluoroscopic guidance. Risks were discussed including but not limited to: Bleeding, infection, possibility of epidural hematoma and subsequent neurologi emre compromise, dural puncture, headaches, spinal cord and/or nerve damage, side effects of steroid medication, and poor results regarding pain control. Patient understands and wished to proceed. Under sterile prep and drape using C-arm fluoroscopic guidance AP and lateral and oblique views, bilateral L4-5 and L5-S1 facet joint MB's injections were performed, using quinke needles with stylette's x4,, medications injected: 120 mg Depo-Medrol +4 cc 0.25% bupivacaine +2 cc contrast. Condition at discharge stable patient tolerated the procedure well and no complications. RIVAS DAWN MD Apr 07, 2021 15:48
== END ==
LOC: PNCL 10:30
PROVIDERS: ATTEND Anesthesiology
DX: M51.17 Intervertebral disc disorders with radiculopathy, lumbosacral region (principal); M47.817 Spondylosis without myelopathy or radiculopathy, lumbosacral region
CPT/HCPCS: 64493; 64494; J1040; J3490; Q9965

== ENCOUNTER → 2021-04-29 | Outpatient (CLI) | payer OTHER ==
--- NOTE | 2021-04-29 15:27 | PDOC ---
Progress Note - Pain Clinic Date of Service: DOS: DATE: 04/29/21 TIME: 15:21 Diagnosis: Dx: Lumbar radiculopathy with lumbar degenerative disc disease Lumbar and lumbosacral spondylosis Myofascial pain History or Present Illness: HPI: 36-year-old female returns for follow-up status post bilateral lumbar facet L4-5 and L5-S1 medial branch blocks. Patient reports no improvement in pain past the duration of about 3 hours following the local anesthetic administration for the medial branch blocks. Patient reports her pain is now much worse and is now traveling into the right lower extremity which is new since her last visit right posterior gluteus lateral thigh anterior thigh medial thigh ulcer posterior thigh and into the calf on the right side patient reports is a 10 on scale 10 is worst 9 on average 7 its least is a 9 today patient ports cramping stabbing aching dull in the back shooting in the leg on the right side constant severe unbearable at times difficult to bear weight patient is laying down on presentation on the exam bed today. Patient reports that pain is causing significant nausea and even vomiting where she is taking Zofran 4-5 times a day minimal patient reports taking oxycodone which has not been decreasing the pain as well and generally being miserable with the pain in the low back and now in the right lower extremity. We reviewed patient's old MRI scans as well as myelogram from 2018 with disc bulging at L4-5 and L5-S1. Patient has tried tizanidine as well as [id number]-yvnblys ibuprofen and Tylenol without significant decrease in pain with any of these agents. Patient reports loss but significant fatigability of the right leg and instability and sensation where she is unstable feeling with walking on the right leg. Patient reports no bowel or bladder incontinence. Physical Exam: VS: Blood pressure is 111/77 pulse 99 respirations 18 temperature 98.0 F height is 5 foot 7 inches weight 190 pounds PE: PHYSICAL EXAMINATION: GENERAL: The patient is awake, alert, oriented, appropriate, pleasant in demeanor HEENT: Shows normocephalic, atraumatic. Extraocular movements are intact and s ymmetrical. Oral cavity: Mucous membranes moist and pink. Dentition is intact. NECK: Shows anterior throat supple without palpable lymphadenopathy noted. Swallow reflex symmetrical. CHEST: Shows normal on inspection. Breath sounds are clear bilaterally, distant no rales rhonchi wheezes also. HEART: Shows S1, S2 clear. No murmurs auscultated. ABDOMEN: Soft, nontender, nondistended, obese. No palpable organomegaly is noted. BACK: Shows spine grossly in the midline. Normal-appearing cervical lordotic c urvature. There is slightly increased thoracic kyphosis, some minor flattening of the lumbar lordotic curvature. Lumbar paraspinous muscles show symmetrical on inspection, on palpation shows some moderate tenderness diffusely throughout the upper, middle and lower distribution of the paraspinous muscles , with significant tenderness noted in the thoracic paraspinous musculature as well as the lumbar paraspinous posture throughout with very firm ropelike musculature consistent with trigger point areas of musculature bilaterally slightly worse on the right than the left but present bilaterally is also true into the superior medial aspect of the gluteus on the right and mildly on the left with very firm ropelike musculature especially on the right consistent with trigger point areas of musculature, no radiation is demonstrated with palpation. The patient has good rotational motion of the lumbar spine, both laterally as well as extension and flexion, but with discomfort with rotation in both right and left lateral as well as extension and some with forward flexion at 45 degrees. EXTREMITIES: Lower extremities show deep tendon reflexes 2+ in the patellar and tendo calcaneus tendons. Motor exam is 4 on a scale of 5 with right dorsiflexion, extension, quadriceps and hamstring flexion and 5/5 on the left. Peripheral pulses are 1+ posterior tibial. No peripheral edema is noted bilaterally. Lower extremities are warm and dry to touch, equal in color and appearance. SKIN: Shows warm and dry, good turgor. No edema. No sores, rashes or bruising throughout. Procedure: Procedure: Options were discussed with the patient. Patient chart reviews her current medication regimen updated current review of systems updated today as well. We will proceed with trigger point injections of the bilateral thoracic paraspinous posture, bilateral lumbar paraspinous muscle, bilateral gluteus musculature. Risk were discussed including but not limited to bleeding infection possibility of intravascular injection sequelae spread local anesthetic numbness side effects steroid medication portals regarding pain control. Patient understands wished to proceed. Also, will order MRI scan lumbar spine to better differentiate the significant increase in radicular pain in the right lower extremity since patient was last seen. Medication Injected: Med Injected: Patient in right lateral decubitus position under sterile prep and drape triggerpoints were identified in the bilateral thoracic paraspinous posture, bilateral lumbar paraspinous muscle, bilateral gluteus musculature. Using 25- gauge needle after negative aspiration each injection site total of 10 cc 0.25% bupivacaine was injected as well as a total of 40 mg Depo-Medrol. Patient tolerated procedure well and had no complications. Condition at Discharge: Condition at Discharge: Condition at discharge is stable, patient tolerated the procedure well and had no complications. RIVAS DAWN MD Apr 29, 2021 15:27
--- NOTE | 2021-04-29 15:27 | PDOC4 ---
Procedure Note: ICD 10 Code: ICD 10 Code: M60.89 Procedure Note: Patient was consented for trigger point injections bilateral thoracic paraspinous posture, bilateral lumbar paraspinous posterior, bilateral gluteus musculature. Risk were discussed including but not limited to bleeding infection possibility of intravascular injection sequelae spread local anesthetic numbness side effects of steroid medication, and poor results regarding pain control. Patient understands wished to proceed. Patient in right lateral decubitus position under sterile prep and drape trigger points were identified in the bilateral thoracic paraspinous posture, bilateral lumbar paraspinous muscle, bilateral gluteus musculature. Using 25-gauge needle after negative aspiration each injection site total of 10 cc 0.25% bupivacaine was injected as well as a total of 40 mg Depo-Medrol. Patient tolerated procedure well and had no complications. RIVAS DAWN MD Apr 29, 2021 15:27
== END | disposition home or self-care (01) ==
LOC: PNCL 14:26
PROVIDERS: ATTEND Anesthesiology
DX: M51.16 Intervertebral disc disorders with radiculopathy, lumbar region (principal); M47.27 Other spondylosis with radiculopathy, lumbosacral region; M79.18 Myalgia, other site; K21.9 Gastro-esophageal reflux disease without esophagitis; F41.9 Anxiety disorder, unspecified; F17.210 Nicotine dependence, cigarettes, uncomplicated; Z79.82 Long term (current) use of aspirin; Z79.899 Other long term (current) drug therapy; Z98.890 Other specified postprocedural states
CPT/HCPCS: 20553; J1040; J3490; Q9965

== ENCOUNTER → 2021-05-14 | Outpatient (CLI) | payer OTHER ==
[~2021-05-14] MED LIST changes: -BUPIVACAINE MPF 0.25% 10 ML VIAL. ONE; -IOHEXOL 180 MG/ML 10 ML VIAL. ONE; -methylPREDNISolone ACETATE 80 MG/ML VIAL. ONE
--- NOTE | 2021-05-14 09:54 | KCIC ---
EXAM: Lumbar spine MRI without contrast. HISTORY: Radiculopathy. TECHNIQUE: Multiplanar, multisequence magnetic resonance imaging of the lumbar spine was performed wi thout contrast. COMPARISON: CT myelogram dated 04/13/2018 and MRI dated 07/17/2020. FINDINGS: There is no significant listhesis. The vertebral bodies are normal in height. There is disc desiccation and endplate remodeling at L4-L5 and L5-S1. There is disc space narrowing at L5-S1. Ther e is no fracture or suspicious osseous lesion. The conus terminates at L1. At L1-L2, L2-L3 and L3-L4, there is no stenosis. At L4-L5, there is a disc bulge with endplate remodeling. There is minimal central canal stenosis. At L5-S1, there is a shallow broad-based posterior central to left lateral recess disc protrusion and annular tear superimposed on a disc bulge and endplate remodeling. There is narrowing of the left la teral recess and suspected abutment of the traversing bilateral S1 nerve roots. There may also be abu tment of the exiting right greater than left L5 nerve roots, without significant foraminal stenosis. IMPRESSION: 1. Degenerative change at the lower lumbar levels, described in detail above. This is associated with minimal central canal stenosis at L4-L5, and narrowing of the left lateral recess and suspected abut ment of the traversing S1 nerve roots and exiting L5 nerve roots at L5-S1. 2. The aforementioned findings are not significantly changed compared to the prior MRI dated 07/17/20, allowing for differences in imaging technique. Electronically signed by: Stephanie Hightower MD (05/14/2021 9:51 AM) [facility]
== END | disposition home or self-care (01) ==
LOC: KCIC MRI 08:24
PROVIDERS: ATTEND Anesthesiology
DX: M47.26 Other spondylosis with radiculopathy, lumbar region (principal); K21.9 Gastro-esophageal reflux disease without esophagitis; F41.9 Anxiety disorder, unspecified; F17.210 Nicotine dependence, cigarettes, uncomplicated; Z79.82 Long term (current) use of aspirin; Z79.899 Other long term (current) drug therapy; Z98.890 Other specified postprocedural states; Z72.89 Other problems related to lifestyle
CPT/HCPCS: 72148